=== PATIENT | female | born 1950 | race Caucasian/White ===

== ENCOUNTER 2017-08-12 08:30 | Outpatient (RCR) | payer MEDICARE, OTHER, SELFPAY ==
[2017-07-15 01:24] VITALS: BP 174/71; PULSE 70; RESP 18; TEMP 36.2
[2017-07-22 08:39] VITALS: BP 127/59; PULSE 65; RESP 18; TEMP 36.6
--- NOTE | 2017-07-22 10:12 | PCM.WC.PN ---
Type of Wound Date of Service: 07/22/17 Chief Complaint: Nonhealing infected diabetic ulcer abscess right lower abdominal wall. History of Wound: Surgery 04/29/17 - Surgical preparation right lower abdominal wall with excision skin, subcutaneous tissue, and fascia with fascial closure for necrotizing soft tissue infected diabetic ulcer abscess (429 cm2). Wound care - VAC. Operative culture - Pseudomonas aeroginosa and Anaerobic cocci. She was placed on Cipro and Cefepime IV and has finished them. For the anaerobes, she was placed on Flagyl and has finished it. Prealbumin from 05/13/17 was 21.8. She takes nutritional supplementation with protein to help the healing process. CT Abdomen/Pelvis from 04/29/17 showed no intra-abdominal infection. Today she denies fever. Her appetite is good. Progress of Wound: Improved. - Physical Exam Vital Signs Temp Pulse Resp BP 97.8 F 65 18 127/59 H 07/22/17 08:39 07/22/17 08:39 07/22/17 08:39 07/22/17 08:39 Wound Measurements and Assessment - Nurse 1 - General Ulcer Measurement Start: 07/22/17 08:38 Freq: Status: Active Protocol: Activity Type Activity Date Activity User E-Sign Co-Sign Detail Recorded Client Recorded Date Recorded By Document 07/22/17 08:39 [id number] 07/22/17 08:40 RAKEL 07/22/17 08:39 Wound Center Nurse 1 [Ulcer Assessment Protocol: WC.WD.LOC] # ABD -Combined with other wound No -Current Size (cm) - Length 5.5 -Current Size (cm) - Width 22.9 -Current Size (cm) - Depth 5.0 -Total Square Cm 125.95 -Photo Taken No -Epithelialization Medium 34-66% -Tunneling No -Undermining/Tunneling No -Circular Undermining No -Exudate Amt Large (67-100%) -Exudate Type Serosanguineous -Wound Margin Flat & Intact -Granulation Amt Large (67-100%) -Granulation Quality Pale Red -Slough/Fibrin Yes -Necrosis Amt Small (1-33%) -Necrotic Tissue Type Adherent Slough -Structure Exposed N/A -Texture (Roro-wound Skin Appearance) Assessed -Moisture (Roro-wound Skin Appearance Assessed ) Dry/Scaly -Color (Roro-wound Skin Appearance) Assessed -Temperature (Roro-wound Skin No Abnormality Appearance) (Pt Warm) -Tenderness on Palpation (Roro-wound No Skin Appearance) -Ulcer Cleansing Wound Cleanser -Foul Odor after Cleansing No -Anesthetic Used 4% Lidocaine Solution [Edema Assessment] -Lower Limb Edema Present NA OMAIRA - Nurse 2 - General Ulcer CM Notes Start: 07/22/17 08:38 Freq: Status: Active Protocol: Activity Type Activity Date Activity User E-Sign Co-Sign Detail Recorded Client Recorded Date Recorded By Document 07/22/17 08:52 RAKEL [id number] 07/22/17 08:55 RAKEL 07/22/17 08:52 Wound Center Nurse 2 [Procedure/Treatment] # ABD -Time 08:53 -Correct Patient Yes -Correct Side, Site, Position Yes -Correct Procedure Yes -Procedure Performed Yes -Type of Procedure Debridement -Clinical Debridement Subcutaneous -Post Debridement Size (cm) - Length 5.5 -Post Debridement Size (cm) - Width 23.0 -Post Debridement Size (cm) - Depth 5.0 -Total Square Cm 126.50 -Wound/Ulcer Outcome Not Healed -Ulcer Cleansing Rinsed/ Irrigated with Saline -Foul Odor after Cleansing No -Bioengineered Tissue No -Cetacaine [place] No -Bleeding Controlled with Pressure -Treatment Response Procedure Tolerated Well [See Physician Procedure note for Specifics] Pain Scale: 0-10 Numeric [Pain] -Is Patient Pain Free? Yes Debridement Note Post-Debridement Measurements/Treatment - Nurse 2 - General Ulcer CM Notes Start: 07/22/17 08:38 Freq: Status: Active Protocol: Activity Type Activity Date Activity User E-Sign Co-Sign Detail Recorded Client Recorded Date Recorded By Document 07/22/17 08:52 [email or web address] [id number] 07/22/17 08:55 07/22/17 08:52 Wound Center Nurse 2 # ABD -Time 08:53 -Correct Patient Yes -Correct Side, Site, Position Yes -Correct Procedure Yes -Procedure Performed Yes -Type of Procedure Debridement -Clinical Debridement Subcutaneous -Post Debridement Size (cm) - Length 5.5 -Post Debridement Size (cm) - Width 23.0 -Post Debridement Size (cm) - Depth 5.0 -Total Square Cm 126.50 -Wound/Ulcer Outcome Not Healed -Ulcer Cleansing Rinsed/ Irrigated with Saline -Foul Odor after Cleansing No -Bioengineered Tissue No -Cetacaine [place] No -Bleeding Controlled with Pressure -Treatment Response Procedure Tolerated Well Pain Scale: 0-10 Numeric Is Patient Pain Free? Yes Wound debrided: #1 Right lower abdominal wall. Laterality: Right Wound Grade/Stage: 4. Type of Debridement: Excisional debridement Anesthesia Used: 4% Lidocaine Solution Depth: Down to and including healthy tissue, in the subcutaneous layer Percentage of wound debrided: 100 Instrument Used: 7mm curette Tissue Removed: subcutaneous tissue. Severity: Fat Layer Exposed Amount of bleeding with debridement: Mild Bleeding Controlled with: Pressure Patient tolerated procedure well Assessment/Plan Assessment: 1. Nonhealing infected diabetic ulcer necrotizing abscess right lower abdominal wall. 2. Skin necrosis. 3. Diabetes mellitus. 4. s/p surgical preparation right lower abdominal wall with excision skin, subcutaneous tissue, and fascia with fascial closure for necrotizing soft tissue infected diabetic ulcer abscess (429 cm2). Plan: Continue the VAC. She was on Cefepime IV as well as Cipro for the Pseudomonas aeroginosa and has finished them. She was placed on Flagyl for the anaerobes and has finished it. Prealbumin was 21.8 on 05/13/17. She takes nutritional supplementation with protein to help the healing process. She uses the abdominal wall binder, and it has been helpful. Discussed with the patient further surgery with operative debridement and secondary wound closure or skin grafting. She will like to proceed with the surgery. Will schedule for next month. Followup 3 weeks.
--- NOTE | 2017-07-31 08:45 | WC ---
Calll from [facility] regarding VAC changes Mrs. Riley's schedule was , but somehow got changed to . Dressing change was missed on Saturday. Patient requesting to have dressing changed on Wednesday 08/02 instead of . Spoke with Lead Architect regarding same. 'Leticia' from home health given the o.k. to leave the dressing on for an extra day and change it Saturday instead of . Drainage reported as minimal.
--- NOTE | 2017-07-31 13:38 | WC ---
Patient reported by Kathleen @ [facility] that family is applying NYSTATIN POWDER to excoriations w/o doctor's order. Area reportedly is clearing up. Home Health wishing to obtain order to use. Animal Ride Manager contacted regarding same.
[2017-08-12 08:20] VITALS: BP 157/71; PULSE 66; RESP 18; TEMP 35.7
--- NOTE | 2017-08-12 17:58 | PCM.WC.PN ---
Type of Wound Date of Service: 08/12/17 Chief Complaint: Nonhealing infected diabetic ulcer abscess right lower abdominal wall. History of Wound: Surgery 04/29/17 - Surgical preparation right lower abdominal wall with excision skin, subcutaneous tissue, and fascia with fascial closure for necrotizing soft tissue infected diabetic ulcer abscess (429 cm2). Wound care - VAC. Operative culture - Pseudomonas aeroginosa and Anaerobic cocci. She was placed on Cipro and Cefepime IV and has finished them. For the anaerobes, she was placed on Flagyl and has finished it. Prealbumin from 05/13/17 was 21.8. She takes nutritional supplementation with protein to help the healing process. CT Abdomen/Pelvis from 04/29/17 showed no intra-abdominal infection. Today she denies fever. Her appetite is good. Progress of Wound: Improved. - Physical Exam Vital Signs Temp Pulse Resp BP 96.2 F L 66 18 157/71 H 08/12/17 08:20 08/12/17 08:20 08/12/17 08:20 08/12/17 08:20 Debridement Note Post-Debridement Measurements/Treatment WC - Nurse 2 - General Ulcer CM Notes Start: 07/22/17 08:38 Freq: Status: Active Protocol: Activity Type Activity Date Activity User E-Sign Co-Sign Detail Recorded Client Recorded Date Recorded By Document 07/22/17 08:52 [id number] 07/22/17 08:55 Document 08/12/17 09:08 [email or web address] [id number] 08/12/17 09:09 07/22/17 08/12/17 08:52 09:08 Wound Center Nurse 2 # ABD -Time 08:53 09:08 -Correct Patient Yes Yes -Correct Side, Site, Position Yes Yes -Correct Procedure Yes Yes -Procedure Performed Yes Yes -Type of Procedure Debridement Debridement -Clinical Debridement Subcutaneous Subcutaneous -Post Debridement Size (cm) - Length 5.5 4.9 -Post Debridement Size (cm) - Width 23.0 18.8 -Post Debridement Size (cm) - Depth 5.0 2.8 -Total Square Cm 126.50 92.12 -Wound/Ulcer Outcome Not Healed Not Healed -Ulcer Cleansing Rinsed/ Rinsed/ Irrigated with Irrigated with Saline Saline -Foul Odor after Cleansing No No -Bioengineered Tissue No No -Cetacaine [place] No No -Bleeding Controlled with Pressure Pressure -Treatment Response Procedure Procedure Tolerated Well Tolerated Well Pain Scale: 0-10 Numeric Is Patient Pain Free? Yes Yes Wound debrided: #1 Right lower abdominal wall. Laterality: Right Wound Grade/Stage: 4. Type of Debridement: Excisional debridement Anesthesia Used: 4% Lidocaine Solution Depth: Down to and including healthy tissue, in the subcutaneous layer Percentage of wound debrided: 100 Instrument Used: 7mm curette Tissue Removed: subcutaneous tissue. Severity: Fat Layer Exposed Amount of bleeding with debridement: Mild Bleeding Controlled with: Pressure Patient tolerated procedure well Assessment/Plan Assessment: 1. Nonhealing infected diabetic ulcer necrotizing abscess right lower abdominal wall. 2. Skin necrosis. 3. Diabetes mellitus. 4. s/p surgical preparation right lower abdominal wall with excision skin, subcutaneous tissue, and fascia with fascial closure for necrotizing soft tissue infected diabetic ulcer abscess (429 cm2). Plan: Continue the VAC. She was on Cefepime IV as well as Cipro for the Pseudomonas aeroginosa and has finished them. She was placed on Flagyl for the anaerobes and has finished it. Prealbumin was 21.8 on 05/13/17. She takes nutritional supplementation with protein to help the healing process. She uses the abdominal wall binder, and it has been helpful. Discussed with the patient further surgery with operative debridement and secondary wound closure or skin grafting. She will like to proceed with the surgery. Will schedule for next month. Followup 3 weeks.
--- NOTE | 2017-08-15 21:41 | PN.PCM_ITS ---
Type of Wound Date of Service: 08/12/17 Chief Complaint: Nonhealing infected diabetic ulcer abscess right lower abdominal wall. History of Wound: Surgery 04/29/17 - Surgical preparation right lower abdominal wall with excision skin, subcutaneous tissue, and fascia with fascial closure for necrotizing soft tissue infected diabetic ulcer abscess (429 cm2). Wound care - VAC. Operative culture - Pseudomonas aeroginosa and Anaerobic cocci. She was placed on Cipro and Cefepime IV and has finished them. For the anaerobes, she was placed on Flagyl and has finished it. Prealbumin from was 21.8. She takes nutritional supplementation with protein to help the healing process. CT Abdomen/Pelvis from 04/29/17 showed no intra-abdominal infection. Today she denies fever. Her appetite is good. Progress of Wound: Improved. - Physical Exam Vital Signs Temp Pulse Resp BP 96.2 F L 66 18 157/71 H 08/12/17 08:20 08/12/17 08:20 08/12/17 08:20 08/12/17 08:20 Debridement Note Post-Debridement Measurements/Treatment WC - Nurse 2 - General Ulcer CM Notes Start: 07/22/17 08:38 Freq: Status: Active Protocol: Activity Type Activity Date Activity User E-Sign Co-Sign Detail Recorded Client Recorded Date Recorded By Document 07/22/17 08:52 [id number] 07/22/17 08:55 Document 08/12/17 09:08 [email or web address] [id number] 08/12/17 09:09 07/22/17 08/12/17 08:52 09:08 Wound Center Nurse 2 # ABD -Time 08:53 09:08 -Correct Patient Yes Yes -Correct Side, Site, Position Yes Yes -Correct Procedure Yes Yes -Procedure Performed Yes Yes -Type of Procedure Debridement Debridement -Clinical Debridement Subcutaneous Subcutaneous -Post Debridement Size (cm) - Length 5.5 4.9 -Post Debridement Size (cm) - Width 23.0 18.8 -Post Debridement Size (cm) - Depth 5.0 2.8 -Total Square Cm 126.50 92.12 -Wound/Ulcer Outcome Not Healed Not Healed -Ulcer Cleansing Rinsed/ Rinsed/ Irrigated with Irrigated with Saline Saline -Foul Odor after Cleansing No No -Bioengineered Tissue No No -Cetacaine [place] No No -Bleeding Controlled with Pressure Pressure -Treatment Response Procedure Procedure Tolerated Well Tolerated Well Pain Scale: 0-10 Numeric Is Patient Pain Free? Yes Yes Wound debrided: #1 Right lower abdominal wall. Laterality: Right Wound Grade/Stage: 4. Type of Debridement: Excisional debridement Anesthesia Used: 4% Lidocaine Solution Depth: Down to and including healthy tissue, in the subcutaneous layer Percentage of wound debrided: 100 Instrument Used: 7mm curette Tissue Removed: subcutaneous tissue. Severity: Fat Layer Exposed Amount of bleeding with debridement: Mild Bleeding Controlled with: Pressure Patient tolerated procedure well Assessment/Plan Assessment: 1. Nonhealing infected diabetic ulcer necrotizing abscess right lower abdominal wall. 2. Skin necrosis. 3. Diabetes mellitus. 4. s/p surgical preparation right lower abdominal wall with excision skin, subcutaneous tissue, and fascia with fascial closure for necrotizing soft tissue infected diabetic ulcer abscess (429 cm2). Plan: Continue the VAC. She was on Cefepime IV as well as Cipro for the Pseudomonas aeroginosa and has finished them. She was placed on Flagyl for the anaerobes and has finished it. Prealbumin was 21.8 on 05/13/17. She takes nutritional supplementation with protein to help the healing process. She uses the abdominal wall binder, and it has been helpful. Discussed with the patient further surgery with operative debridement and secondary wound closure or skin grafting. She will like to proceed with the surgery. Will schedule for next month. Followup 3 weeks.
== END 2017-08-14 23:59 ==
LOC: WC 08:30
PROVIDERS: Family Provider Family Medicine; PCP Family Medicine; Visit Provider Surgery
DX: E11.622 Type 2 diabetes mellitus with other skin ulcer (principal); L02.211 Cutaneous abscess of abdominal wall; L98.492 Non-pressure chronic ulcer of skin of other sites with fat layer exposed
CPT/HCPCS: 11042; 11045; 97606

== ENCOUNTER 2017-08-22 06:20 | Day surgery (SDC) | payer MEDICARE, OTHER, SELFPAY ==
[2017-08-16 10:05] LABS: Hematocrit 34.8 % (37-47); Hemoglobin 11.3 g/dl (12.0-15.0); Mean Corp Hgb Conc 32.5 g/gl (32-36); Mean Corpuscular Hgb 29.4 pg (27.0-32.0); Mean Corpuscular Volume 90.6 fL (81-99); Mean Platelet Vol. 11.5 fl (6.2-12.0); Platelet Count 246 K/mm3 (150-450); RBC Distribution Width CV 15.7 % (11.6-14.6); RBC Distribution Width SD 51.2 fl (35.1-43.9); Red Blood Count 3.84 M/mm3 (4.2-5.4); White Blood Count 6.6 K/mm3 (4.4-11.0)
[2017-08-16 10:06] LABS: Scan Indicated on CBC? Y/N NO
[2017-08-16 10:34] LABS: Hemoglobin A1c 6.2 % (4.2-6.3)
[2017-08-16 10:56] LABS: Anion Gap 11 (5-15); BUN 42 mg/dL (7-18); BUN/Creat Ratio 41.6 RATIO (10-20); Chloride 101 mmol/L (98-107); Creatinine, Serum 1.01 mg/dL (0.55-1.02); EST Glomerular Filtration Rate 58 mL/min (>60); Est Glom Filt Rate - Afr Amer 71 mL/min (>60); Glucose 167 mg/dL (70-110); Potassium 4.2 mmol/L (3.5-5.1); Prealbumin 23.2 mg/dL (20.0-40.0); Sodium Level 137 mmol/L (136-145)
--- NOTE | 2017-08-21 16:38 | HP.PCM_ITS ---
History and Physical Date of Admission: 08/22/17 History of Present Illness Chief Complaint: Nonhealing infected diabetic ulcer right lower abdominal wall. History of Wound: 67-year-old female presented with a very painful nonhealing ulcer right lower abdominal wall that has been present since February. She has had two courses of Keflex antibiotics. Patient relates no fever, chills, myalgias or arthralgias. Patient has type II diabetes on multiple hypoglycemics as well as once a day insulin. A wound culture was done last week which showed Pseudomonas aeroginosa and Enterococcus faecalis. She complained of a lot of pain as well as burning from pins and needles stabbing her in the wound. She was taken to the OR on 04/29/17 where she underwent surgical preparation right lower abdominal wall with excision skin, subcutaneous tissue, and fascia with fascial closure for necrotizing soft tissue infected diabetic ulcer abscess (429 cm2). Postop she was treated with the VAC and antibiotics with Cefepime and Cipro and Flagyl. Operative cultures showed Pseudomonas aeroginosa and Anaerobic cocci. She presents today for further operative debridement and secondary wound closure. Her preop Hgb A1c was 6.2. Past Medical History Past Medical History: Diabetes mellitus. Hypertension. Obesity. STEPHANE. Surgical History: cholecystectomy, hysterectomy - [place], tonsillectomy, - - section, vulvar abscess. Surgical preparation right lower abdominal wall with excision skin, subcutaneous tissue, and fascia with fascial closure for necrotizing soft tissue infected diabetic ulcer abscess (429 cm2) - 04/29/17. Allergies/Adverse Reactions: apple. cinnamon. metoprolol. strawberry. metformin. Home Medications: Amiloride. Aspirin. B Complex with Vitamin C. Calcium Carbonate. Candesartan-HCTZ. Lasix. Micronase. Insulin. MVI. Omeprazole. Actos. Zoloft. Januvia. SOCIAL HISTORY: Lives: With Family Smoking Status: Never smoker Tobacco Use: Non-smoker Alcohol: None Drugs: None Family History Maternal History Items: - - no DM Sibling History Items: Diabetes Review of Systems Constitutional: Denies: Chills, Fever. Eyes: Denies: Double vision. HEENT: Denies: Ear Pain, Head Aches, Nasal bleeding, Sore Throat. Cardiovascular: Denies: Chest Pain, Claudication, Edema, Light Headedness. Respiratory: Denies : Cough, Shortness of breath upon exertion. Gastrointestinal: Denies: Abdominal Pain, Constipation, Diarrhea. Genitourinary: Denies: Dysuria, Hematuria. Musculoskeletal: Denies: Back Pain, Foot Pain, Joint Pain, Joint stiffness, Joint swelling, Leg Pain. Skin: Reports: Wounds. Denies: Rash. Neurological: Denies: Confusion, Focal weakness, Headaches, Incoordination. Psychiatric: Denies: Anxiety, Depression. Endocrine: Denies: Heat/ Cold Intolerance, Polydipsia, Polyuria. Hematologic/ Lymphatic: Denies: Anemia, Easy Bruising, Hx of blood clot - Physical Exam General: Alert, Oriented x3 HEENT: PERRLA, EOMI, Oral: Throat is clear. Neck: Supple, nontender. No cervical adenopathy. Lungs: Clear to auscultation, Cardiovascular: Regular rate, Regular Rhythm Abdomen: Obese. In the right lower abdominal wall is a nonhealing ulcer measuring 5 x 19 x 3 cm. Good granulation tissue seen. Some tenderness to palpation. No further evidence of infection. Has lower midline scar. Extremities: No cyanosis, No edema, No Calf Tenderness Assessment/Plan Assessment: 1. Nonhealing infected diabetic ulcer right lower abdominal wall. 2. Diabetes mellitus. 3. s/p surgical preparation right lower abdominal wall with excision skin, subcutaneous tissue, and fascia with fascial closure for necrotizing soft tissue infected diabetic ulcer abscess (429 cm2). Plan: Recommend further operative debridement and secondary wound closure and possible skin grafting. Will send tissue for Pathology for analysis to rule out carcinoma. Tissue will also be sent to Microbiology for culture. A positive culture may necessitate antibiotic modification. Her Hgb A1c is 6.2 so we can proceed with the surgery. Perioperatively will treat her with Cefepime and Levaquin because of her history of Pseudomonas. Surgery will be done under general anesthesia with a surgical observation overnight stay in the hospital. She will have a drain postop and need an abdominal binder. Drain will be removed in 10-14 days. Her preop Prealbumin was 23.2 as I anticipate increased metabolic demands. Encourage nutritional supplementation with protein to help the healing process. Patient was informed of the risks and complications of the procedure including alternatives to surgery. These were discussed with her personally. She voiced understanding and wishes to proceed.
[2017-08-22] VITALS (9 sets, daily range): BP systolic 112–177; BP diastolic 45–66; PULSE 55–70; RESP 16; TEMP 36.3–36.8; O2SAT 91–100; BMI 49.1
[2017-08-22 07:01] LABS: Bedside Glucose 100 mg/dL (70-110)
--- NOTE | 2017-08-22 08:00 | DEB_PTH ---
PATIENT: UTE MARTINEZ LOC: [facility] [place][id number] AGE/SX: 67/F ROOM: RE08/22/[address]: Dr. El Cao MD : [id number] BED: DIS: 08/23/2017 SPEC #: [id number] RECD: 08/22/17 09:21 STATUS: TYESHA CHAPARRO #: [id number] JERICHO: 08/22/17 08:[address]: El Cao DEPT: SURGICAL PATHOLOGY RECD BY: Sean Ayala ENTERED: 08/22/17 11:51 SP TYPE: JASMINE FLOWERS DR: Dr. Bc Gray MD Tissues: Soft tissues, NOS Procedures: Special Stain Group I Surgery Specimen Level III AFB Stain (control) GMS Stain (control) HEADER OPERATION: Debridement wound, lower abdominal wall, secondary wound PRE-OP DIAGNOSIS: Nonhealing infected diabetic ulcer, right abdominal wall TISSUE SUBMITTED: Nonhealing infected diabetic ulcer, right abdominal wall MICROSCOPIC DIAGNOSIS Debrided tissue, nonhealing infected diabetic ulcer, right abdominal wall: Skin with underlying tissue with ulceration, associated acute and chronic inflammation and granulation tissue reaction. Special stains for acid fast bacilli and fungi are negative for organisms; matched controls are appropriate. MARIO:katie 08/23/17 MICROSCOPIC DESCRIPTION Slides are reviewed. GROSS DESCRIPTION Received in fixative is one container labeled with the patient's name and designated debrided tissue, nonhealing infected diabetic ulcer, right abdominal wall. The specimen consists of a piece of skin with underlying tissue measuring 21 x 9 x 6 cm. The skin surface shows central area of ulceration. Software Support Representative sections are submitted in three cassettes. Sections do not reveal any mass lesion. / MARIO:katie 08/22/17 TC:2 CPT: 00494, 65545 x2
[2017-08-22] MEDS: Cefepime HCl 2 GM in 0.9% NS 100 ML Minibag Q8 IV (08:04)
--- NOTE | 2017-08-22 09:49 | OP.PN_ITS ---
Immediate Post-Op Note Date of Procedure: 08/22/17 Primary Surgeon/Physician: El Cao bilingual loan processor: Nicole Patricio. Pre-Operative Diagnosis: 1. Nonhealing infected diabetic ulcer right lower abdominal wall. 2. Diabetes mellitus. 3. s/p surgical preparation right lower abdominal wall with excision skin, subcutaneous tissue, and fascia with fascial closure for necrotizing soft tissue infected diabetic ulcer abscess ( 429 cm2). Post-Operative Diagnosis: Same. Surgery/Procedure Performed:: Surgical preparation right lower abdominal wall with excision nonhealing infected diabetic ulcer and 35 cm complex secondary wound closure. Description of Surgical Findings:: 67-year-old female presented with a very painful nonhealing ulcer right lower abdominal wall that has been present since February. She has had two courses of Keflex antibiotics. Patient relates no fever, chills, myalgias or arthralgias. Patient has type II diabetes on multiple hypoglycemics as well as once a day insulin. A wound culture was done last week which showed Pseudomonas aeroginosa and Enterococcus faecalis. She complained of a lot of pain as well as burning from pins and needles stabbing her in the wound. She was taken to the OR on 04/29/17 where she underwent surgical preparation right lower abdominal wall with excision skin, subcutaneous tissue, and fascia with fascial closure for necrotizing soft tissue infected diabetic ulcer abscess (429 cm2). Postop she was treated with the VAC and antibiotics with Cefepime and Cipro and Flagyl. Operative cultures showed Pseudomonas aeroginosa and Anaerobic cocci. She presents today for further operative debridement and secondary wound closure. Her preop Hgb A1c was 6.2. Today the patient underwent surgical preparation right lower abdominal wall with excision nonhealing infected diabetic ulcer and 35 cm complex secondary wound closure. I used Shania absorbable hemostat. Reference Number - [id number]. Lot Number - [id number]. Expiration - May 11, 2022. Estimated Blood Loss: 100 ml. Specimen's removed: Nonhealing infected diabetic ulcer right lower abdominal wall to Pathology and Microbiology. Drains: Lj. Type of Anesthesia:: General - Admit VTE Documentation VTE Present on Admission: No VTE Mechan Device Prophylaxis: SCD's VTE Pharm Prophylaxis ordered?: No
[2017-08-22 10:01] LABS: Bedside Glucose 109 mg/dL (70-110)
[2017-08-22] MEDS: Vitamin B Comp W-C Capsule 1 CAP PO (11:54)
[2017-08-22] MEDS: Furosemide 20 MG Tablet PO (11:54)
[2017-08-22] MEDS: Sertraline 50 MG Tablet PO (11:56)
[2017-08-22] MEDS: Pioglitazone Hydrochloride 30 MG Tablet PO (11:59)
--- NOTE | 2017-08-22 16:53 | PCM.OPRPT ---
Report of Operation Date of Procedure: 08/22/17 Pre-Operative Diagnosis: 1. Nonhealing infected diabetic ulcer right lower abdominal wall. 2. Diabetes mellitus. 3. s/p surgical preparation right lower abdominal wall with excision skin, subcutaneous tissue, and fascia with fascial closure for necrotizing soft tissue infected diabetic ulcer abscess (429 cm2). Post-Operative Diagnosis: Same. Surgery/Procedure Performed:: Surgical preparation right lower abdominal wall (175 cm2) with excision nonhealing infected diabetic ulcer and 35 cm complex secondary wound closure. Description of Surgical Findings:: 67-year-old female presented with a very painful nonhealing ulcer right lower abdominal wall that has been present since February. She has had two courses of Keflex antibiotics. Patient relates no fever, chills, myalgias or arthralgias. Patient has type II diabetes on multiple hypoglycemics as well as once a day insulin. A wound culture was done last week which showed Pseudomonas aeroginosa and Enterococcus faecalis. She complained of a lot of pain as well as burning from pins and needles stabbing her in the wound. She was taken to the OR on 04/29/17 where she underwent surgical preparation right lower abdominal wall with excision skin, subcutaneous tissue, and fascia with fascial closure for necrotizing soft tissue infected diabetic ulcer abscess (429 cm2). Postop she was treated with the VAC and antibiotics with Cefepime and Cipro and Flagyl. Operative cultures showed Pseudomonas aeroginosa and Anaerobic cocci. She presents today for further operative debridement and secondary wound closure. Her preop Hgb A1c was 6.2. Patient was informed of the risks and complications of the procedure including alternatives to surgery. These were discussed with her personally. She voiced understanding and wishes to proceed. I used Shania absorbable hemostat. Reference Number - [id number]. Lot Number - [id number]. Expiration - May 11, 2022. teacher instrumental: Nicole Patricio. Type of Anesthesia:: General Specimen's removed: Nonhealing infected diabetic ulcer right lower abdominal wall to Pathology and Microbiology. Drains: Lj. Estimated Blood Loss (mL): 100 ml. Description of Procedure: Patient was taken to OR in supine position and was placed under general anesthesia. Her abdominal wall was prepped and draped in the usual fashion. SCD's were placed for DVT prophylaxis. Perioperative antibiotics were given intravenously. Using xylocaine with epinephrine, I infiltrated the nonhealing diabetic ulcer. After waiting 5 minutes for the anesthetic to take effect, I excised the nonhealing diabetic ulcer down to the abdominal wall fascia. There was some adherent scar tissue to the fascia that was excised. The underlying fascia was intact and looked healthy without evidence of fasciitis. This deeper tissue was sent to Microbiology for culture. The rest of the tissue was sent to Pathology for analysis to rule out carcinoma. The wound was irrigated with saline. Hemostasis was obtained with electrocautery. I then sprayed Shania absorbable hemostat into the wound to help minimize seroma formation postoperatively. A size 15 Lj drain was placed through a separate stab incision inferiorly and medially in the pubic area and secured to the skin with 3-0 Nylon suture. The wound was then closed in a multiple layer complex fashion with 2-0 Vicryl figure of eight interrupted sutures for the underlying Amanda's fascia. The deep dermis and subcutaneous tissue was approximated with 2-0 Vicryl interrupted sutures. The skin was approximated with 3-0 Vlock barbed unidirectional running subcuticular suture followed by Histoacryl skin tissue adhesive. Kerlix gauze was applied to the incision followed by ABD pads and compression tape dressing. An abdominal wall binder was applied. Patient tolerated the procedure well and was sent to PACU in satisfactory condition. She will be sent upstairs for surgical observation overnight stay. She will go home on antibiotics and pain medication. The drain will be removed in 10-14 days. She will wear the abdominal binder for several weeks. Grafts/Implants Used: None. - Complications None. - Admit VTE Documentation VTE Present on Admission: No VTE Mechan Device Prophylaxis: SCD's VTE Pharm Prophylaxis ordered?: No Code Visit Surgery Charges CPT - 99422 ICD-10 - L98.492, E11.622 85417 L98.492, E11.622 80976 L98.492, E11.622
[2017-08-22] MEDS: Glucerna Shake 120 ML LIQUID PO ×2 (16:58→17:18)
[2017-08-22] MEDS: Lactated Ringers 1,000 ML 60 ML IV (16:59)
[2017-08-22 17:11] LABS: Bedside Glucose 119 mg/dL (70-110)
[2017-08-22] MEDS: HYDROmorphone 1 MG/ML Syringe IV (17:19)
[2017-08-22] MEDS: 0.9% NaCl Peripheral Flush Adult/Peds IV (20:13)
[2017-08-22] MEDS: Ondansetron 4 MG/2 ML Vial IV (20:13)
[2017-08-22] MEDS: Docusate Sodium 100 MG Capsule PO (22:38)
[2017-08-22 22:56] LABS: Bedside Glucose 150 mg/dL (70-110)
[2017-08-23] MEDS: oxyCODONE 5 MG Tablet 10 MG PO ×4 (02:21→12:47)
[2017-08-23 02:31] VITALS: BP 129/52; PULSE 68; RESP 16; TEMP 37.2; O2SAT 94
[2017-08-23 06:15] LABS: Hematocrit 30.1 % (37-47); Hemoglobin 9.5 g/dl (12.0-15.0); Mean Corp Hgb Conc 31.6 g/gl (32-36); Mean Corpuscular Hgb 29.1 pg (27.0-32.0); Mean Platelet Vol. 11.2 fl (6.2-12.0); Platelet Count 155 K/mm3 (150-450); RBC Distribution Width CV 15.9 % (11.6-14.6); RBC Distribution Width SD 51.7 fl (35.1-43.9); Red Blood Count 3.27 M/mm3 (4.2-5.4); Scan Indicated on CBC? Y/N NO; White Blood Count 4.6 K/mm3 (4.4-11.0)
[2017-08-23 06:48] LABS: Anion Gap 10 (5-15); BUN 32 mg/dL (7-18); BUN/Creat Ratio 32.9 RATIO (10-20); Calcium,Total 8.2 mg/dL (8.5-10.1); Chloride 102 mmol/L (98-107); Creatinine, Serum 0.97 mg/dL (0.55-1.02); EST Glomerular Filtration Rate 61 mL/min (>60); Est Glom Filt Rate - Afr Amer 74 mL/min (>60); Estimated Creatinine Clearance 49.93 ml/min; Glucose 143 mg/dL (74-106); Potassium 4.1 mmol/L (3.5-5.1); Prealbumin 16.8 mg/dL (20.0-40.0); Sodium Level 136 mmol/L (136-145)
[2017-08-23 08:31] VITALS: BP 153/72; PULSE 75; RESP 16; TEMP 36.7; O2SAT 94
[2017-08-23] MEDS: Calcium Carb/Vitamin D 1 TABLET Tablet PO (08:33)
[2017-08-23] MEDS: LINAGLIPTIN 5 MG TABLET PO (08:33)
[2017-08-23] MEDS: Pioglitazone Hydrochloride 30 MG Tablet PO (08:33)
[2017-08-23] MEDS: Pantoprazole Sodium 40 MG Tablet PO (08:33)
[2017-08-23] MEDS: Multivitamins,Therapeutic Tablet 1 TABLET PO (08:33)
[2017-08-23] MEDS: hydroCHLOROthiazide 25 MG Tablet PO (08:33)
[2017-08-23] MEDS: Losartan Potassium 100 MG Tablet PO (08:33)
[2017-08-23] MEDS: Vitamin B Comp W-C Capsule 1 CAP PO (08:34)
[2017-08-23] MEDS: Docusate Sodium 100 MG Capsule PO (08:34)
[2017-08-23] MEDS: Sertraline 50 MG Tablet PO (08:35)
[2017-08-23] MEDS: Glucerna Shake 120 ML LIQUID PO ×2 (09:44→12:47)
[2017-08-23] MEDS: Lactated Ringers 1,000 ML 60 ML IV (09:46)
[2017-08-23 10:54] VITALS: BP 145/61; PULSE 72; RESP 16; TEMP 37.3; O2SAT 94
--- NOTE | 2017-08-23 14:15 | PCM.PN.SRG ---
Subjective: Postop #1 Patient is resting comfortably. - Physical Exam General: Alert, Oriented x3 HEENT: PERRLA, EOMI Neck: Supple Lungs: Clear to auscultation Cardiovascular: Regular rate, Regular Rhythm Abdomen: Soft, Non-Distended Skin: Incision - right lower abdominal wall incision dry and intact. No clinical evidence of hematoma. Neurological: Cranial nerves II-XII grossly intact Psych/Mental Status: Normal Affect, Appropriate Vital Signs Temp Pulse Resp BP Pulse Ox 99.2 F H 72 16 145/61 H 94 08/23/17 10:54 08/23/17 10:54 08/23/17 10:54 08/23/17 10:54 08/23/17 10:54 Oxygen Delivery Method Room Air Weight: 286 lb 6.087 oz Body Mass Index (BMI) 49.1 Finger Stick Blood Glucose 109 Intake and Output for Last 24 Hours 08/21/17 08/22/17 08/23/17 23:59 23:59 23:59 Intake Total 3099 / 3099 1547 / 1547 Output Total 1000 / 1000 730 / 730 Balance 2099 / 2099 817 / 817 Drainage 100 ml yesterday, 80 ml today. Microbiology Past 72 Hours 08/22/17 08:45 Gram Stain - Final Tissue - Abdominal Wound Culture - Preliminary No growth-Final to follow Laboratory Tests Past 24 Hrs 08/23/17 08/23/17 05:46 05:46 WBC 4.6 RBC 3.27 L Hgb 9.5 L Hct 30.1 L MCV 92.0 MCH 29.1 MCHC 31.6 L RDW 15.9 H RDW Differential 51.7 H Plt Count 155 MPV 11.2 Sodium 136 Potassium 4.1 Chloride 102 Carbon Dioxide 24.0 Anion Gap 10 BUN 32 H Creatinine 0.97 Estim Creat Clear Calc 49.93 Est GFR (MDRD) Af Amer 74 Est GFR (MDRD) Non-Af 61 BUN/Creatinine Ratio 32.9 H Glucose 143 H Calcium 8.2 L Prealbumin 16.8 L POC Glucose 08/22/17 08/22/17 22:37 17:02 POC Glucose 150 H 119 H Assessment/Plan 1. Nonhealing infected diabetic ulcer right lower abdominal wall. 2. Diabetes mellitus. 3. s/p surgical preparation right lower abdominal wall with excision nonhealing infected diabetic ulcer and 28 cm complex secondary wound closure. Patient is resting comfortably. Incision is dry and intact. No clinical evidence of hematoma. Continue abdominal binder. Will remove the drain in 10-14 days. Maintain on Cipro until the drain is removed. Prealbumin was 16.8. Encourage nutritional supplementation with protein to help the healing process. Discharge home today. Followup Wound Center Saturday09/02/17 at 1000am. Wrote script for Cipro for 2 weeks until the drain is removed. Wrote script for Phenergan for nausea (30 tabs). She has some Percocet at home from her last surgery that she will use as needed for pain.
--- NOTE | 2017-08-23 14:27 | PCM.DC ---
You will use the following diet at home:: Calorie/Carbohydrate Controlled (specify 1200, 1400, etc), Other - encourage nutritional supplementation wtih protein to help the healing process. Discharge Activity: May not drive while taking narcotic pain medications., May Shower - after the drain is removed. May shower in (days): 14 - may shower after the drain is removed. May resume sexual activity in: 4-6 weeks Weight Bearing Status: Weight bearing as tolerated Lifting Restrictions: 20 lbs. Call your doctor if your incision/area has: Continuous Slow Oozing, Sudden Increased Bleeding, Increased Pain/ Swelling, Increased Redness, Foul Smelling Discharge, Swelling at the incision site Call your doctor if you observe: Fever of 101 or Higher, Coldness, Increased Pain, Shortness of breath, Chest pain, Calf discomfort, Uncontrolled pain Suture Line Care: - - dry dressing daily. Change Dressing in (Days):: 1 - dry dressing daily. Cleanse incision/area with: - - may get incision wet in the shower after the drain is removed. Drain: Suction - mickey drain to bulb suction. empty and record output daily. Additional Dressing/Incision Instructions:: Wear abdominal binder. Additional Instructions: Patient has Percocet at home and will use them as needed for pain. Allergies/Adverse Reactions: Allergies apple Allergy (Verified 08/15/17 11:19) Hives cinnamon Allergy (Verified 08/15/17 11:19) Hives metoprolol [From Toprol XL] Allergy (Verified 08/15/17 11:19) Swelling strawberry Allergy (Verified 08/15/17 11:19) Hives metformin Adverse Reaction (Verified 08/15/17 11:19) Other Medications to take at Discharge Amiloride HCl 5 mg PO DAILY 04/24/17 B Complex with Vitamin C [B-Complex with C] 1 each PO DAILY 04/24/17 Candesartan/Hydrochlorothiazid [Candesartan-Hctz 32-25 mg Tab] 1 each PO DAILY 04/24/17 Furosemide [Lasix] 20 mg PO QODAY 04/24/17 GlyBURIDE [Micronase] 2.5 mg PO DAILY@0800 04/24/17 Insulin Glargine,Hum.rec.anlog [Lantus] 12 unit SQ QHS 04/24/17 Multivitamin [Daily Multiple Vitamin] 1 each PO DAILY 04/24/17 Omeprazole 40 mg PO MOWEFR 04/24/17 Pioglitazone [Actos] 30 mg PO DAILY 04/24/17 Sitagliptin Phosphate [Januvia] 100 mg PO DAILY 04/24/17 Oxycodone HCl/Acetaminophen [Percocet 5-325] 1 - 2 tablet PO 4X/DAY PRN PRN #50 tablet 05/02/17 Calcium Carbonate/Vitamin D3 [Calcium 500-Vit D3 600 Tablet] 1 each PO DAILY 08/15/17 Sertraline HCl [Zoloft] 50 mg PO DAILY 08/15/17 Ciprofloxacin [Cipro] 500 mg PO BID #28 tab 08/23/17 Clarify Order 0 ea NOTE CLARIFY note 08/23/17 Glucerna Shake 120 ml PO 4X/DAY liquid 08/23/17 Hydrochlorothiazide [Hctz] 25 mg PO DAILY tablet 08/23/17 Insulin Detemir [Levemir FlexPen] 12 units SC HS insuln.pen 08/23/17 L. Acidophilus/Pectin, [place] [Acidophilus-Pectin Captab] 1 ea PO BID #30 tab 08/23/17 Linagliptin [Tradjenta] 5 mg PO DAILY tablet 08/23/17 Losartan Potassium [Cozaar] 100 mg PO DAILY tablet 08/23/17 Pantoprazole Sodium [Protonix] 40 mg PO MoWeFr@1000 tablet 08/23/17 ProMETHAzine [Phenergan] 25 mg PO 4X/DAY PRN PRN #30 tab 08/23/17 The following prescriptions were given: ProMETHAzine [Phenergan] 25 mg PO 4X/DAY PRN PRN #30 tab PRN Reason: NAUSEA/VOMITING Ciprofloxacin [Cipro] 500 mg PO BID #28 tab L. Acidophilus/Pectin, [place] [Acidophilus-Pectin Captab] 1 ea PO BID #30 tab Primary Care Physician: Bc Gray MD [Primary Care Provider] - Please Follow Up With: El Cao MD - call [phone] if any questions. When: saturday09/02/17 at [facility] at 1000 am. Proposed Discharge Date: 08/23/17
--- NOTE | 2017-08-23 14:32 | DCINST_ITS ---
You will use the following diet at home:: Calorie/Carbohydrate Controlled ( specify 1200, 1400, etc), Other - encourage nutritional supplementation wtih protein to help the healing process. Discharge Activity: May not drive while taking narcotic pain medications., May Shower - after the drain is removed. May shower in (days): 14 - may shower after the drain is removed. May resume sexual activity in: 4-6 weeks Weight Bearing Status: Weight bearing as tolerated Lifting Restrictions: 20 lbs. Call your doctor if your incision/area has: Continuous Slow Oozing, Sudden Increased Bleeding, Increased Pain/ Swelling, Increased Redness, Foul Smelling Discharge, Swelling at the incision site Call your doctor if you observe: Fever of 101 or Higher, Coldness, Increased Pain, Shortness of breath, Chest pain, Calf discomfort, Uncontrolled pain Suture Line Care: - - dry dressing daily. Change Dressing in (Days):: 1 - dry dressing daily. Cleanse incision/area with: - - may get incision wet in the shower after the drain is removed. Drain: Suction - mickey drain to bulb suction. empty and record output daily. Additional Dressing/Incision Instructions:: Wear abdominal binder. Additional Instructions: Patient has Percocet at home and will use them as needed for pain. Allergies/Adverse Reactions: Allergies apple Allergy (Verified 08/15/17 11:19) Hives cinnamon Allergy (Verified 08/15/17 11:19) Hives metoprolol [From Toprol XL] Allergy (Verified 08/15/17 11:19) Swelling strawberry Allergy (Verified 08/15/17 11:19) Hives metformin Adverse Reaction (Verified 08/15/17 11:19) Other Medications to take at Discharge Amiloride HCl 5 mg PO DAILY 04/24/17 B Complex with Vitamin C [B-Complex with C] 1 each PO DAILY 04/24/17 Candesartan/Hydrochlorothiazid [Candesartan-Hctz 32-25 mg Tab] 1 each PO DAILY 04/24/17 Furosemide [Lasix] 20 mg PO QODAY 04/24/17 GlyBURIDE [Micronase] 2.5 mg PO DAILY@0800 04/24/17 Insulin Glargine,Hum.rec.anlog [Lantus] 12 unit SQ QHS 04/24/17 Multivitamin [Daily Multiple Vitamin] 1 each PO DAILY 04/24/17 Omeprazole 40 mg PO MOWEFR 04/24/17 Pioglitazone [Actos] 30 mg PO DAILY 04/24/17 Sitagliptin Phosphate [Januvia] 100 mg PO DAILY 04/24/17 Oxycodone HCl/Acetaminophen [Percocet 5-325] 1 - 2 tablet PO 4X/DAY PRN PRN #50 tablet 05/02/17 Calcium Carbonate/Vitamin D3 [Calcium 500-Vit D3 600 Tablet] 1 each PO DAILY 08/01 Sertraline HCl [Zoloft] 50 mg PO DAILY 08/15/17 Ciprofloxacin [Cipro] 500 mg PO BID #28 tab 08/23/17 Clarify Order 0 ea NOTE CLARIFY note 08/23/17 Glucerna Shake 120 ml PO 4X/DAY liquid 08/23/17 Hydrochlorothiazide [Hctz] 25 mg PO DAILY tablet 08/23/17 Insulin Detemir [Levemir FlexPen] 12 units SC HS insuln.pen 08/23/17 L. Acidophilus/Pectin, [place] [Acidophilus-Pectin Captab] 1 ea PO BID #30 tab Linagliptin [Tradjenta] 5 mg PO DAILY tablet 08/23/17 Losartan Potassium [Cozaar] 100 mg PO DAILY tablet 08/23/17 Pantoprazole Sodium [Protonix] 40 mg PO MoWeFr@1000 tablet 08/23/17 ProMETHAzine [Phenergan] 25 mg PO 4X/DAY PRN PRN #30 tab 08/23/17 The following prescriptions were given: ProMETHAzine [Phenergan] 25 mg PO 4X/DAY PRN PRN #30 tab PRN Reason: NAUSEA/VOMITING Ciprofloxacin [Cipro] 500 mg PO BID #28 tab L. Acidophilus/Pectin, [place] [Acidophilus-Pectin Captab] 1 ea PO BID #30 tab Primary Care Physician: Bc Gray MD [Primary Care Provider] - Please Follow Up With: El Cao MD - call [phone] if any questions. When: saturday09/02/17 at [facility] at 1000 am. Proposed Discharge Date: 08/23/17
--- NOTE | 2017-08-23 14:34 | OP.PCM_ITS ---
Report of Operation Date of Procedure: 08/22/17 Pre-Operative Diagnosis: 1. Nonhealing infected diabetic ulcer right lower abdominal wall. 2. Diabetes mellitus. 3. s/p surgical preparation right lower abdominal wall with excision skin, subcutaneous tissue, and fascia with fascial closure for necrotizing soft tissue infected diabetic ulcer abscess ( 429 cm2). Post-Operative Diagnosis: Same. Surgery/Procedure Performed:: Surgical preparation right lower abdominal wall ( 175 cm2) with excision nonhealing infected diabetic ulcer and 35 cm complex secondary wound closure. Description of Surgical Findings:: 67-year-old female presented with a very painful nonhealing ulcer right lower abdominal wall that has been present since February. She has had two courses of Keflex antibiotics. Patient relates no fever, chills, myalgias or arthralgias. Patient has type II diabetes on multiple hypoglycemics as well as once a day insulin. A wound culture was done last week which showed Pseudomonas aeroginosa and Enterococcus faecalis. She complained of a lot of pain as well as burning from pins and needles stabbing her in the wound. She was taken to the OR on 04/29/17 where she underwent surgical preparation right lower abdominal wall with excision skin, subcutaneous tissue, and fascia with fascial closure for necrotizing soft tissue infected diabetic ulcer abscess (429 cm2). Postop she was treated with the VAC and antibiotics with Cefepime and Cipro and Flagyl. Operative cultures showed Pseudomonas aeroginosa and Anaerobic cocci. She presents today for further operative debridement and secondary wound closure. Her preop Hgb A1c was 6.2. Patient was informed of the risks and complications of the procedure including alternatives to surgery. These were discussed with her personally. She voiced understanding and wishes to proceed. I used Shania absorbable hemostat. Reference Number - [id number]. Lot Number - [id number]. Expiration - May 11, 2022. pension agent: Nicole Patricio. Type of Anesthesia:: General Specimen's removed: Nonhealing infected diabetic ulcer right lower abdominal wall to Pathology and Microbiology. Drains: Lj. Estimated Blood Loss (mL): 100 ml. Description of Procedure: Patient was taken to OR in supine position and was placed under general anesthesia. Her abdominal wall was prepped and draped in the usual fashion. SCD's were placed for DVT prophylaxis. Perioperative antibiotics were given intravenously. Using xylocaine with epinephrine, I infiltrated the nonhealing diabetic ulcer. After waiting 5 minutes for the anesthetic to take effect, I excised the nonhealing diabetic ulcer down to the abdominal wall fascia. There was some adherent scar tissue to the fascia that was excised. The underlying fascia was intact and looked healthy without evidence of fasciitis. This deeper tissue was sent to Microbiology for culture. The rest of the tissue was sent to Pathology for analysis to rule out carcinoma. The wound was irrigated with saline. Hemostasis was obtained with electrocautery. I then sprayed Shania absorbable hemostat into the wound to help minimize seroma formation postoperatively. A size 15 Lj drain was placed through a separate stab incision inferiorly and medially in the pubic area and secured to the skin with 3-0 Nylon suture. The wound was then closed in a multiple layer complex fashion with 2-0 Vicryl figure of eight interrupted sutures for the underlying Amanda's fascia. The deep dermis and subcutaneous tissue was approximated with 2-0 Vicryl interrupted sutures. The skin was approximated with 3-0 Vlock barbed unidirectional running subcuticular suture followed by Histoacryl skin tissue adhesive. Kerlix gauze was applied to the incision followed by ABD pads and compression tape dressing. An abdominal wall binder was applied. Patient tolerated the procedure well and was sent to PACU in satisfactory condition. She will be sent upstairs for surgical observation overnight stay. She will go home on antibiotics and pain medication. The drain will be removed in 10-14 days. She will wear the abdominal binder for several weeks. Grafts/Implants Used: None. - Complications None. - Admit VTE Documentation VTE Present on Admission: No VTE Mechan Device Prophylaxis: SCD's VTE Pharm Prophylaxis ordered?: No Code Visit Surgery Charges CPT - 90653 ICD-10 - L98.492, E11.622 76033 L98.492, E11.622 19754 L98.492, E11.622
== END 2017-08-23 14:58 | disposition home or self-care (01) ==
LOC: SDC 06:20 → AC 06:21 → MS3 09:43
PROVIDERS: Family Provider Family Medicine; PCP Family Medicine; Visit Provider Surgery
PROC: (CPT 13160; principal; 2017-08-22 07:45)
DX: E11.622 Type 2 diabetes mellitus with other skin ulcer (principal); L98.492 Non-pressure chronic ulcer of skin of other sites with fat layer exposed; B96.5 Pseudomonas (aeruginosa) (mallei) (pseudomallei) as the cause of diseases classified elsewhere; B95.2 Enterococcus as the cause of diseases classified elsewhere; I10 Essential (primary) hypertension; K21.9 Gastro-esophageal reflux disease without esophagitis; G47.33 Obstructive sleep apnea (adult) (pediatric); E66.9 Obesity, unspecified; Z68.42 Body mass index [BMI] 45.0-49.9, adult; Z79.4 Long term (current) use of insulin; Z79.84 Long term (current) use of oral hypoglycemic drugs; Z79.82 Long term (current) use of aspirin; Z79.899 Other long term (current) drug therapy
CPT/HCPCS: 00400; 13160; 15002; 15003; 36415; 80048; 82962; 83036; 84134; 85027; 87070; 87075; 87102; 87205; 87206; 88304; 88312; 97802; J7120; A4216; J2405

== ENCOUNTER 2017-09-09 08:30 | Outpatient (RCR) | payer MEDICARE, OTHER, SELFPAY ==
[2017-08-12 08:20] VITALS: BP 157/71
[2017-08-15 00:48] VITALS: PULSE 66; RESP 18; TEMP 35.7
[2017-09-02 09:58] VITALS: BP 151/73; PULSE 71; RESP 18; TEMP 36.2
--- NOTE | 2017-09-02 10:12 | WC ---
surgical wound closure on 08/22/17. photo taken today. no wound measurements.
--- NOTE | 2017-09-02 19:20 | PCM.WC.PN ---
Type of Wound Date of Service: 09/02/17 Chief Complaint: Nonhealing diabetic ulcer right lower abdominal wall, s/p wound closure. History of Wound: Surgery 08/22/17 - Surgical preparation right lower abdominal wall with excision nonhealing infected diabetic ulcer and 35 cm complex secondary wound closure. Operative culture - negative. She was treated with Cipro perioperatively. Prealbumin from 08/23/17 was 16.8. She takes nutritional supplementation with protein to help the healing process. Today she denies fever. Her appetite is good. Progress of Wound: Recent operative closure - 08/22/17. - Physical Exam Vital Signs Temp Pulse Resp BP 97.1 F L 71 18 151/73 H 09/02/17 09:58 09/02/17 09:58 09/02/17 09:58 09/02/17 09:58 Skin: Incision - Incision is dry and intact. Drainage has been about 100 ml per day. Wound Measurements and Assessment WC - Nurse 1 - General Ulcer Measurement Start: 09/02/17 09:58 Freq: Status: Active Protocol: Activity Type Activity Date Activity User E-Sign Co-Sign Detail Recorded Client Recorded Date Recorded By Document 09/02/17 09:58 [facility] [id number] 09/02/17 10:12 [facility] 09/02/17 09:58 Wound Center Nurse 1 [Ulcer Assessment] # ABD -Combined with other wound No -Date of Last Picture (Recall this 09/02/17 field) -Photo Taken Yes -Texture (Roro-wound Skin Appearance) No Abnormality -Moisture (Roro-wound Skin Appearance Assessed ) -Color (Roro-wound Skin Appearance) Assessed -Temperature (Roro-wound Skin No Abnormality Appearance) (Pt Warm) -Tenderness on Palpation (Roro-wound No Skin Appearance) -Ulcer Cleansing Wound Cleanser -Foul Odor after Cleansing No - Nurse 2 - General Ulcer CM Notes Start: 09/02/17 09:58 Freq: Status: Active Protocol: Activity Type Activity Date Activity User E-Sign Co-Sign Detail Recorded Client Recorded Date Recorded By Document 09/02/17 10:30 [id number] 09/02/17 10:33 09/02/17 10:30 Wound Center Nurse 2 [Procedure/Treatment] -Correct Patient No -Correct Side, Site, Position No -Correct Procedure No -Procedure Performed No -Wound/Ulcer Outcome Healed- Surgical Closure -Bleeding Controlled with Pressure [See Physician Procedure note for Specifics] Pain Scale: 0-10 Numeric [Pain] -Is Patient Pain Free? Yes Debridement Note Post-Debridement Measurements/Treatment WC - Nurse 2 - General Ulcer CM Notes Start: 09/02/17 09:58 Freq: Status: Active Protocol: Activity Type Activity Date Activity User E-Sign Co-Sign Detail Recorded Client Recorded Date Recorded By Document 09/02/17 10:30 [id number] 09/02/17 10:33 09/02/17 10:30 Wound Center Nurse 2 # ABD -Correct Patient No -Correct Side, Site, Position No -Correct Procedure No -Procedure Performed No -Wound/Ulcer Outcome Healed- Surgical Closure -Bleeding Controlled with Pressure Pain Scale: 0-10 Numeric Is Patient Pain Free? Yes Wound debrided: #1 Right lower abdominal wall. Laterality: Right Wound Grade/Stage: 4. No debridement was completed today - patient had recent wound closure on 08/22/17. Assessment/Plan Assessment: 1. Nonhealing infected diabetic ulcer necrotizing abscess right lower abdominal wall. 2. Skin necrosis. 3. Diabetes mellitus. 4. s/p surgical preparation right lower abdominal wall with excision skin, subcutaneous tissue, and fascia with fascial closure for necrotizing soft tissue infected diabetic ulcer abscess (429 cm2). 5. s/p surgical preparation right lower abdominal wall with excision nonhealing infected diabetic ulcer and 35 cm complex secondary wound closure. Plan: Continue Cipro until the drain is removed. Operative culture was negative. Prealbumin was 16.8 on 08/23/17. She takes nutritional supplementation with protein to help the healing process. She uses the abdominal wall binder, and it has been helpful. Followup one week. Will remove the drain next week.
[2017-09-09 08:22] VITALS: BP 179/70; PULSE 66; RESP 18; TEMP 35.7
--- NOTE | 2017-09-09 17:17 | PCM.WC.PN ---
Type of Wound Date of Service: 09/09/17 Chief Complaint: Nonhealing diabetic ulcer right lower abdominal wall, s/p wound closure. History of Wound: Surgery 08/22/17 - Surgical preparation right lower abdominal wall with excision nonhealing infected diabetic ulcer and 35 cm complex secondary wound closure. Operative culture - negative. She was treated with Cipro perioperatively. Prealbumin from 08/23/17 was 16.8. She takes nutritional supplementation with protein to help the healing process. Today she denies fever. Her appetite is good. Progress of Wound: Recent operative closure - 08/22/17. - Physical Exam Vital Signs Temp Pulse Resp BP 96.2 F L 66 18 179/70 H 09/09/17 08:22 09/09/17 08:22 09/09/17 08:22 09/09/17 08:22 Skin: Incision - incision is dry and intact. Wound Measurements and Assessment WC - Nurse 1 - General Ulcer Measurement Start: 09/02/17 09:58 Freq: Status: Active Protocol: Activity Type Activity Date Activity User E-Sign Co-Sign Detail Recorded Client Recorded Date Recorded By Document 09/09/17 08:22 DL [id number] 09/09/17 08:28 DL 09/09/17 08:22 Wound Center Nurse 1 [Ulcer Assessment] # ABD -Combined with other wound No -Current Size (cm) - Length 0.1 -Current Size (cm) - Width 0.1 -Current Size (cm) - Depth 0.1 -Total Square Cm 0.01 -Photo Taken No -Epithelialization Large 67-100% -Tunneling No -Undermining/Tunneling No -Circular Undermining No -Classification - Thickness Full Thickness without Exposed Support Structure -Exudate Amt None Present (0 %) -Wound Margin Distinct, Outline Attached -Granulation Amt Large (67-100%) -Granulation Quality [place] -Slough/Fibrin No -Necrosis Amt None Present (0 %) -Structure Exposed None/Limited to Skin Breakdown -Texture (Roro-wound Skin Appearance) Localized Edema Scarring -Moisture (Roro-wound Skin Appearance No Abnormality ) -Color (Roro-wound Skin Appearance) Erythema -Temperature (Roro-wound Skin No Abnormality Appearance) (Pt Warm) -Tenderness on Palpation (Roro-wound No Skin Appearance) -Ulcer Cleansing Rinsed/ Irrigated with Saline -Foul Odor after Cleansing No [Edema Assessment] -Lower Limb Edema Present No WC - Nurse 2 - General Ulcer CM Notes Start: 09/02/17 09:58 Freq: Status: Active Protocol: Activity Type Activity Date Activity User E-Sign Co-Sign Detail Recorded Client Recorded Date Recorded By Document 09/09/17 09:06 [id number] 09/09/17 09:07 09/09/17 09:06 Wound Center Nurse 2 [Procedure/Treatment] # ABD -Correct Patient No -Correct Side, Site, Position No -Correct Procedure No -Procedure Performed No -Wound/Ulcer Outcome Healed- Flap [See Physician Procedure note for Specifics] Pain Scale: 0-10 Numeric [Pain] -Is Patient Pain Free? Yes Debridement Note Post-Debridement Measurements/Treatment WC - Nurse 2 - General Ulcer CM Notes Start: 09/02/17 09:58 Freq: Status: Active Protocol: Activity Type Activity Date Activity User E-Sign Co-Sign Detail Recorded Client Recorded Date Recorded By Document 09/02/17 10:30 [id number] 09/02/17 10:33 Document 09/09/17 09:06 [id number] 09/09/17 09:07 09/02/17 09/09/17 10:30 09:06 Wound Center Nurse 2 # ABD -Correct Patient No No -Correct Side, Site, Position No No -Correct Procedure No No -Procedure Performed No No -Wound/Ulcer Outcome Healed- Healed- Flap Surgical Closure -Bleeding Controlled with Pressure Pain Scale: 0-10 Numeric Is Patient Pain Free? Yes Yes Wound debrided: #1 Right lower abdominal wall. Laterality: Right Wound Grade/Stage: 4. No debridement was completed today - Patient had recent wound closure on 08/22/17. Assessment/Plan Assessment: 1. Nonhealing infected diabetic ulcer necrotizing abscess right lower abdominal wall. 2. Skin necrosis. 3. Diabetes mellitus. 4. s/p surgical preparation right lower abdominal wall with excision skin, subcutaneous tissue, and fascia with fascial closure for necrotizing soft tissue infected diabetic ulcer abscess (429 cm2). 5. s/p surgical preparation right lower abdominal wall with excision nonhealing infected diabetic ulcer and 35 cm complex secondary wound closure. Plan: The drain was removed today. May stop the Cipro now that the drain is removed. Operative culture was negative. Prealbumin was 16.8 on 08/23/17. She takes nutritional supplementation with protein to help the healing process. Continue abdominal wall binder. Followup 2 weeks.
--- NOTE | 2017-09-10 23:58 | PN.PCM_ITS ---
Type of Wound Date of Service: 09/09/17 Chief Complaint: Nonhealing diabetic ulcer right lower abdominal wall, s/p wound closure. History of Wound: Surgery 08/22/17 - Surgical preparation right lower abdominal wall with excision nonhealing infected diabetic ulcer and 35 cm complex secondary wound closure. Operative culture - negative. She was treated with Cipro perioperatively. Prealbumin from 08/23/17 was 16.8. She takes nutritional supplementation with protein to help the healing process. Today she denies fever. Her appetite is good. Progress of Wound: Recent operative closure - 08/22/17. - Physical Exam Vital Signs Temp Pulse Resp BP 96.2 F L 66 18 179/70 H 09/09/17 08:22 09/09/17 08:22 09/09/17 08:22 09/09/17 08:22 Skin: Incision - incision is dry and intact. Wound Measurements and Assessment WC - Nurse 1 - General Ulcer Measurement Start: 09/02/17 09:58 Freq: Status: Active Protocol: Activity Type Activity Date Activity User E-Sign Co-Sign Detail Recorded Client Recorded Date Recorded By Document 09/09/17 08:22 DL [id number] 09/09/17 08:28 DL 09/09/17 08:22 Wound Center Nurse 1 [Ulcer Assessment] # ABD -Combined with other wound No -Current Size (cm) - Length 0.1 -Current Size (cm) - Width 0.1 -Current Size (cm) - Depth 0.1 -Total Square Cm 0.01 -Photo Taken No -Epithelialization Large 67-100% -Tunneling No -Undermining/Tunneling No -Circular Undermining No -Classification - Thickness Full Thickness without Exposed Support Structure -Exudate Amt None Present (0 %) -Wound Margin Distinct, Outline Attached -Granulation Amt Large (67-100%) -Granulation Quality [place] -Slough/Fibrin No -Necrosis Amt None Present (0 %) -Structure Exposed None/Limited to Skin Breakdown -Texture (Roro-wound Skin Appearance) Localized Edema Scarring -Moisture (Roro-wound Skin Appearance No Abnormality ) -Color (Roro-wound Skin Appearance) Erythema -Temperature (Roro-wound Skin No Abnormality Appearance) (Pt Warm) -Tenderness on Palpation (Roro-wound No Skin Appearance) -Ulcer Cleansing Rinsed/ Irrigated with Saline -Foul Odor after Cleansing No [Edema Assessment] -Lower Limb Edema Present No WC - Nurse 2 - General Ulcer CM Notes Start: 09/02/17 09:58 Freq: Status: Active Protocol: Activity Type Activity Date Activity User E-Sign Co-Sign Detail Recorded Client Recorded Date Recorded By Document 09/09/17 09:06 [id number] 09/09/17 09:07 09/09/17 09:06 Wound Center Nurse 2 [Procedure/Treatment] # ABD -Correct Patient No -Correct Side, Site, Position No -Correct Procedure No -Procedure Performed No -Wound/Ulcer Outcome Healed- Flap [See Physician Procedure note for Specifics] Pain Scale: 0-10 Numeric [Pain] -Is Patient Pain Free? Yes Debridement Note Post-Debridement Measurements/Treatment WC - Nurse 2 - General Ulcer CM Notes Start: 09/02/17 09:58 Freq: Status: Active Protocol: Activity Type Activity Date Activity User E-Sign Co-Sign Detail Recorded Client Recorded Date Recorded By Document 09/02/17 10:30 [id number] 09/02/17 10:33 Document 09/09/17 09:06 [id number] 09/09/17 09:07 09/02/17 09/09/17 10:30 09:06 Wound Center Nurse 2 # ABD -Correct Patient No No -Correct Side, Site, Position No No -Correct Procedure No No -Procedure Performed No No -Wound/Ulcer Outcome Healed- Healed- Flap Surgical Closure -Bleeding Controlled with Pressure Pain Scale: 0-10 Numeric Is Patient Pain Free? Yes Yes Wound debrided: #1 Right lower abdominal wall. Laterality: Right Wound Grade/Stage: 4. No debridement was completed today - Patient had recent wound closure on 08/22/17. Assessment/Plan Assessment: 1. Nonhealing infected diabetic ulcer necrotizing abscess right lower abdominal wall. 2. Skin necrosis. 3. Diabetes mellitus. 4. s/p surgical preparation right lower abdominal wall with excision skin, subcutaneous tissue, and fascia with fascial closure for necrotizing soft tissue infected diabetic ulcer abscess (429 cm2). 5. s/p surgical preparation right lower abdominal wall with excision nonhealing infected diabetic ulcer and 35 cm complex secondary wound closure. Plan: The drain was removed today. May stop the Cipro now that the drain is removed. Operative culture was negative. Prealbumin was 16.8 on 08/23/17. She takes nutritional supplementation with protein to help the healing process. Continue abdominal wall binder. Followup 2 weeks.
== END 2017-09-11 23:59 ==
LOC: WC 08:30
PROVIDERS: Family Provider Family Medicine; PCP Family Medicine; Visit Provider Surgery
DX: E11.622 Type 2 diabetes mellitus with other skin ulcer (principal); L98.499 Non-pressure chronic ulcer of skin of other sites with unspecified severity
CPT/HCPCS: 99213; G0463

== ENCOUNTER 2017-09-24 11:40 | Outpatient (RCR) | payer MEDICARE, OTHER, SELFPAY ==
[2017-09-12 00:38] VITALS: BP 157/71; PULSE 66; RESP 18; TEMP 35.7
[2017-09-24 13:32] VITALS: BP 192/85; PULSE 72; RESP 18; TEMP 35.9
--- NOTE | 2017-09-24 22:10 | PCM.WC.PN ---
Type of Wound Date of Service: 09/24/17 Chief Complaint: Nonhealing infected diabetic ulcer abscess right lower abdominal wall. History of Wound: Surgery 08/22/17 - Surgical preparation right lower abdominal wall with excision nonhealing infected diabetic ulcer and 35 cm complex secondary wound closure. Operative culture - negative. She was treated with Cipro perioperatively and has finished them. Prealbumin from 08/23/17 was 16.8. She takes nutritional supplementation with protein to help the healing process. Today she denies fever. Her appetite is good. Progress of Wound: Recent operative closure - 08/22/17. - Physical Exam Vital Signs Temp Pulse Resp BP 96.7 F L 72 18 192/85 H 09/24/17 13:32 09/24/17 13:32 09/24/17 13:32 09/24/17 13:32 Skin: Incision - incision is dry and intact and healing satisfactory. No clinical evidence of seroma. Wound Measurements and Assessment WC - Nurse 1 - General Ulcer Measurement Start: 09/24/17 13:31 Freq: Status: Active Protocol: Activity Type Activity Date Activity User E-Sign Co-Sign Detail Recorded Client Recorded Date Recorded By Document 09/24/17 13:32 DL [id number] 09/24/17 13:38 DL 09/24/17 13:32 Wound Center Nurse 1 [Ulcer Assessment] # ABD -Current Size (cm) - Length 0.2 -Current Size (cm) - Width 0.3 -Current Size (cm) - Depth 0.1 -Total Square Cm 0.06 -Photo Taken No -Exudate Amt None Present (0 %) -Wound Margin Flat & Intact -Granulation Amt Large (67-100%) -Granulation Quality Pale -Necrosis Amt None Present (0 %) -Structure Exposed N/A -Texture (Roro-wound Skin Appearance) Scarring -Moisture (Roro-wound Skin Appearance No Abnormality ) -Color (Roro-wound Skin Appearance) No Abnormality -Temperature (Roro-wound Skin No Abnormality Appearance) (Pt Warm) -Ulcer Cleansing Rinsed/ Irrigated with Saline -Foul Odor after Cleansing No -Anesthetic Used 4% Lidocaine Solution WC - Nurse 2 - General Ulcer CM Notes Start: 09/24/17 13:31 Freq: Status: Active Protocol: Activity Type Activity Date Activity User E-Sign Co-Sign Detail Recorded Client Recorded Date Recorded By Document 09/24/17 13:58 [id number] 09/24/17 13:59 09/24/17 13:58 Wound Center Nurse 2 [Procedure/Treatment] -Correct Patient No -Correct Side, Site, Position No -Correct Procedure No -Procedure Performed No [See Physician Procedure note for Specifics] Pain Scale: 0-10 Numeric [Pain] -Is Patient Pain Free? Yes Debridement Note Post-Debridement Measurements/Treatment WC - Nurse 2 - General Ulcer CM Notes Start: 09/24/17 13:31 Freq: Status: Active Protocol: Activity Type Activity Date Activity User E-Sign Co-Sign Detail Recorded Client Recorded Date Recorded By Document 09/24/17 13:58 [id number] 09/24/17 13:59 09/24/17 13:58 Wound Center Nurse 2 # ABD -Correct Patient No -Correct Side, Site, Position No -Correct Procedure No -Procedure Performed No Pain Scale: 0-10 Numeric Is Patient Pain Free? Yes Wound debrided: #1 Right lower abdominal wall. Laterality: Right Wound Grade/Stage: 4. No debridement was completed today - Patient had wound closure on 08/22/17. Assessment/Plan Assessment: 1. Nonhealing infected diabetic ulcer necrotizing abscess right lower abdominal wall. 2. Skin necrosis. 3. Diabetes mellitus. 4. s/p surgical preparation right lower abdominal wall with excision skin, subcutaneous tissue, and fascia with fascial closure for necrotizing soft tissue infected diabetic ulcer abscess (429 cm2). 5. s/p surgical preparation right lower abdominal wall with excision nonhealing infected diabetic ulcer and 35 cm complex secondary wound closure. Plan: The incision remains healed. She is finished the Cipro now that the drain is removed. Operative culture was negative. Prealbumin was 16.8 on 08/23/17. She takes nutritional supplementation with protein to help the healing process. Continue abdominal wall binder for another couple of weeks. Massage incision with skin lotion daily to help soften up the scar. Followup on an as needed basis.
== END 2017-10-12 23:59 ==
LOC: WC 11:40
PROVIDERS: Family Provider Family Medicine; PCP Family Medicine; Visit Provider Surgery
DX: Z09 Encounter for follow-up examination after completed treatment for conditions other than malignant neoplasm (principal); E11.9 Type 2 diabetes mellitus without complications
CPT/HCPCS: 99212; G0463

== ENCOUNTER 2018-12-25 11:40 | Emergency (ER) | payer MEDICARE, OTHER, SELFPAY ==
[2017-08-22 11:04] VITALS: BMI 49.1
[2018-12-25 11:42] VITALS: BP 192/119; PULSE 54; RESP 20; TEMP 37; O2SAT 100; BMI 45.6
--- NOTE | 2018-12-25 13:04 | CT_ITS ---
STUDY: CT BRAIN WITHOUT CONTRAST REASON FOR EXAM: Female, 68 years old. One week history of vertigo and dizziness. RADIATION DOSAGE (If Supplied By Facility): CTDIvol = ( 44.99 ) mGy, DLP = ( 762.36 ) mGycm TECHNIQUE: Transaxial CT imaging of the brain was performed without administration of intravenous contrast material. Individualized dose optimization techniques were used for this CT. COMPARISON: No relevant priors. FINDINGS: Normal soft tissue structures. Normal calvarium. Normal size ventricles and extra-axial spaces for the patient's age. Normal white matter tracts of the cerebral hemispheres. Normal basal ganglia and thalami. Normal brainstem. Normal cerebellum. There is no intracranial hemorrhage. There are no findings of an acute ischemic infarction. Atherosclerotic calcification of the cavernous portions of the internal carotid arteries bilaterally. Mucosal thickening along the posterior aspect of the right maxillary sinus. CT/Brain/Head without Contrast IMPRESSION: Normal unenhanced CT scan of the brain. Electronically Signed: Jimmy Miguel, at 14:35 EDT , Service support ,
--- NOTE | 2018-12-25 13:05 | EKG12_ITS ---
Test Reason : DIZZY Blood Pressure : / mmHG Vent. Rate : 048 BPM Atrial Rate : 048 BPM P-R Int : 214 ms QRS Dur : 102 ms QT Int : 428 ms P-R-T Axes : 041 -18 006 degrees QTc Int : 382 ms Sinus bradycardia with 1st degree A-V block Possible Inferior infarct , age undetermined Abnormal ECG Confirmed by ROEL MCCOLLUM ([id number]), society editor ANTONIA PRADO ([id number]) on 12/29/2018 1:15:17 PM Referred By: JASEN/MANI Confirmed By:ELEN MCCOLLUM
--- NOTE | 2018-12-25 13:05 | RAD_ITS ---
STUDY: X-RAY CHEST REASON FOR EXAM: Female, 68 years old. Chest pain. TECHNIQUE: Single AP portable view of the chest. COMPARISON: Comparison is made with prior study dated August 18, 2015. FINDINGS: EKG electrodes are seen. The lungs are clear and expanded. There is no demonstrated pleural abnormality. Normal size heart. Normal mediastinum and brenna. Normal visualized pulmonary arteries. Normal visualized aortic arch and descending thoracic aorta. There are diffuse degenerative changes of the visualized thoracic spine. Calcific tendinitis of the left shoulder. There is no demonstrated abnormality of the visualized soft tissue structures of the upper abdomen. RAD/Chest 1 View (Portable) IMPRESSION: No acute abnormality is seen. Electronically Signed: Jimmy Miguel, at 14:00 EDT , Service support ,
[2018-12-25 14:03] VITALS: PULSE 57; RESP 20; O2SAT 100
[2018-12-25 14:04] LABS: Absolute Lymphocyte Count 1.17 X10^3/ul (0.83-4.51); Absolute Neutrophil Count 4.3 X10^3/uL (2.0-7.7); Basophil# 0.02 X10^3/uL; Basophil% 0.3 % (0-1); Eosinophil# 0.13 X10^3/uL; Eosinophils% 2.2 % (0-5); Hematocrit 37.1 % (37-47); Hemoglobin 12.5 g/dl (12.0-15.0); Lymphocyte # 1.17 X10^3/ul (4.0); Lymphocyte % 19.6 % (19-41); Mean Corp Hgb Conc 33.7 g/gl (32-36); Mean Corpuscular Hgb 30.8 pg (27.0-32.0); Mean Corpuscular Volume 91.4 fL (81-99); Mean Platelet Vol. 11.5 fl (6.2-12.0); Monocyte# 0.34 X10^3/uL; Monocyte% 5.7 % (0-10); Platelet Count 140 K/mm3 (150-450); RBC Distribution Width CV 13.2 % (11.6-14.6); RBC Distribution Width SD 43.8 fl (35.1-43.9); Red Blood Count 4.06 M/mm3 (4.2-5.4)
[2018-12-25 14:09] LABS: POSITIVE COUNT NO; POSITIVE DIFFERENTIAL NO; POSITIVE MORPHOLOGY NO
[2018-12-25 14:26] LABS: ALB/GLOB Ratio 1.1 RATIO (0.9-2.4); AST(SGOT) 21 U/L (15-37); Alanine Aminotransfer ALT/SGPT 34 U/L (13-56); Albumin, Serum 3.5 g/dL (3.2-5.0); Alkaline Phosphatase 44 U/L (45-117); Anion Gap 4 (5-15); BUN 36 mg/dL (7-18); BUN/Creat Ratio 43.3 RATIO (10-20); Calcium,Total 9.3 mg/dL (8.5-10.1); Chloride 109 mmol/L (98-107); Creatinine, Serum 0.83 mg/dL (0.55-1.02); EST Glomerular Filtration Rate 73 mL/min (>60); Est Glom Filt Rate - Afr Amer 88 mL/min (>60); Estimated Creatinine Clearance 57.57 ml/min; Globulin 3.3 g/dL (2.2-4.2); Glucose 66 mg/dL (74-106); Lipase 102 U/L (73-393); Potassium 3.6 mmol/L (3.5-5.1); Protein, Total 6.8 g/dL (6.4-8.2); Sodium Level 138 mmol/L (136-145)
[2018-12-25 14:45] LABS: International Normalized Ratio 1.1; Prothrombin Time (Protime)PT. 13.6 SECONDS (11.7-14.9)
[2018-12-25 14:49] LABS: D-Dimer Quantitative (DVT/PE) 0.28 FEU/ug/m (0.27-0.49)
--- NOTE | 2018-12-25 15:28 | CT_ITS ---
STUDY: CTA OF THE BRAIN REASON FOR EXAM: Female, 68 years old. Dizziness RADIATION DOSAGE (If Supplied By Facility): CTDIvol = ( 20.64 ) mGy, DLP = ( 782.39 ) mGycm TECHNIQUE: CT angiography was performed with a multi-detector CT scanner. Data acquisition was obtained from the skull base through the vertex following intravenous administration of 100 IV Isovue 370. MIP images were reconstructed from the axial data set. Post-processing of the angiographic images was performed, with multiplanar reformation and 3D reconstruction. Individualized dose optimization techniques were used for this CT. COMPARISON: None. FINDINGS: Normal bilateral petrous carotid arteries. Normal right cavernous carotid artery with a normal supraclinoid bifurcation. Normal left cavernous carotid artery with a normal supraclinoid bifurcation. Normal right A1 segments of the anterior cerebral artery. Normal left A1 segments of the anterior cerebral artery. Normal intact anterior communicating artery (ACOM). Normal bilateral A2 segments of the anterior cerebral arteries. Normal right M1 and M2 segments of the middle cerebral arteries, with a normal M1 bifurcation. Normal left M1 and M2 segments of the middle cerebral arteries, with a normal M1 bifurcation. Normal right posterior communicating artery (PCOM). Normal left posterior communicating artery (PCOM). Normal bilateral vertebral arteries. Normal basilar artery with a normal basilar bifurcation. The visualized bilateral superior cerebellar (SCA) arteries are normal. Normal bilateral P1, P2 and visualized P3 segments of the posterior cerebral arteries. There is no demonstrated aneurysm of the three affiliated of [place]. There is no demonstrated abnormality of the visualized brain. CT/CTA Head W/WO Contrast IMPRESSION: Normal three affiliated of [place] without a demonstrated aneurysm or hemodynamically significant stenosis. Electronically Signed: Loki Pepper MD at 16:14 EDT Tel , Service support ,
--- NOTE | 2018-12-25 15:28 | CT_ITS ---
STUDY: CTA NECK WITH CONTRAST REASON FOR EXAM: Female, 68 years old. Dizziness RADIATION DOSAGE (If Supplied By Facility): CTDIvol = ( 20.64 ) mGy, DLP = ( 782.39 ) mGycm TECHNIQUE: CT angiography with multi-detector data acquisition was performed from the aortic arch to the skull base following intravenous administration of 100 IV Isovue 370. MIP images were reconstructed from the axial data set. Post-processing of the angiographic images was performed, with multiplanar reformation and 3D reconstruction. Individualized dose optimization techniques were used for this CT. COMPARISON: None. FINDINGS: AORTIC ARCH: Normal visualized aortic arch. Normal origins of the brachiocephalic, left common carotid, and left subclavian arteries. RIGHT CAROTID ARTERIES: Normal right common carotid artery (CCA). There is mild atherosclerotic plaque formation with minimal narrowing of the right carotid bulb. Normal origin of the right internal carotid (ICA) artery without a hemodynamically significant stenosis. Normal visualized cervical portion of the right internal carotid artery. Normal origin of the right external carotid artery (ECA). LEFT CAROTID ARTERIES: Normal left common carotid artery (CCA). There is mild atherosclerotic plaque formation with minimal narrowing of the left carotid bulb. Normal origin of the left internal carotid (ICA) artery without a hemodynamically significant stenosis. Normal visualized cervical portion of the left internal carotid artery. There is mild atherosclerotic plaque formation of the origin of the left external carotid artery with less than 50% cross sectional diameter stenosis. VERTEBRAL ARTERIES: Normal bilateral vertebral arteries. CT/CTA Neck W/WO Contrast IMPRESSION: 1. Mild amount of calcified plaque at the carotid bifurcation bilaterally producing a mild (20%) stenosis bilaterally. 2. Patent vertebral arteries bilaterally. Electronically Signed: Loki Pepper MD at 16:16 EDT Tel , Service support ,
[2018-12-25] MEDS: Meclizine HCl 25 MG Tablet PO (15:48)
[2018-12-25 16:17] VITALS: BP 161/59; PULSE 65; RESP 23; O2SAT 98
--- NOTE | 2018-12-25 16:23 | ED.VISSUMM ---
- ER Visit Summary Date of Service: 12/25/18 Chief Complaint: Dizziness History of Present Illness: The patient is a 68 F who presents with dizziness. She describes this both as a vertigo sensation as well as lightheadedness. Symptoms have been going on for about 2 weeks. They were worse over the past 6 days. Patient also reports some upper abdominal fullness but denies any other GI symptoms. Denies any urinary symptoms. Denies chest pain or shortness of breath. She never had symptoms like this in the past. She does have a history of diabetes, hypertension, hyperlipidemia, and sleep apnea. She takes aspirin but no other blood thinners. Physical Examination: Blood pressure 192/119. Heart rate 54. Otherwise vital signs unremarkable. Head and neck atraumatic. HEENT exam unremarkable. Cranial nerves grossly intact. Heart regular. Lungs clear. Skin appears normal. Good strength and sensation. No focal or lateralizing neurologic abnormalities. Test Results: EKG showed sinus rhythm at a rate of 48. No sign of acute ischemia or infarction pattern. CBC unremarkable. Chloride 109, glucose 66, BUN 36, alkaline phosphatase 44. Lipase normal. Coags unremarkable. Troponin normal. D-dimer negative. CT brain showed no acute process. Chest x-ray was unremarkable. Emergency Department Course and Treatment: Patient presented with dizziness. Her EKG showed bradycardia with first-degree block. Patient was placed on a monitor. She did have heart rates in the 50s and 60s. No further bradycardia less than 54. Patient was hypertensive on arrival but repeat blood pressure was 161/59 without intervention. Patient did not have focal neurologic symptoms. Her CT was unremarkable. Blood work otherwise was unremarkable. On reevaluation, patient had ambulated. She was feeling better and requesting discharge. I advised her that her symptoms could be related to her heart rate blood pressure, or possible stroke. Patient was requesting outpatient follow-up. I advised CTA head and neck prior to discharge. These showed mild 20% stenosis at the bilateral carotid bifurcations. No other acute finding. Patient is doing well and would still like to follow-up as an outpatient. She was advised to return if she has any new or worsening issues. Repeat blood pressure 161/59 and heart rate 65. Treatment Plan: As above Disposition: Discharge Impression: 1. Dizziness This note was generated with EchoPixel[employer] software. It may contain incorrect words, spelling, and punctuation that were not noted in review of the chart prior to signing ED Disposition - Plan for ED Patient: Referrals: Bc Gray MD [Primary Care Provider] -
--- NOTE | 2018-12-25 16:27 | ED.DCSUM_ITS ---
- ER Visit Summary Date of Service: 12/25/18 Chief Complaint: Dizziness History of Present Illness: The patient is a 68 F who presents with dizziness. She describes this both as a vertigo sensation as well as lightheadedness. Symptoms have been going on for about 2 weeks. They were worse over the past 6 days. Patient also reports some upper abdominal fullness but denies any other GI symptoms. Denies any urinary symptoms. Denies chest pain or shortness of breath. She never had symptoms like this in the past. She does have a history of diabetes, hypertension, hyperlipidemia, and sleep apnea. She takes aspirin but no other blood thinners. Physical Examination: Blood pressure 192/119. Heart rate 54. Otherwise vital signs unremarkable. Head and neck atraumatic. HEENT exam unremarkable. Cranial nerves grossly intact. Heart regular. Lungs clear. Skin appears amparo l. Good strength and sensation. No focal or lateralizing neurologic abnormalities. Test Results: EKG showed sinus rhythm at a rate of 48. No sign of acute ischemia or infarction pattern. CBC unremarkable. Chloride 109, glucose 66, BUN 36, alkaline phosphatase 44. Lipase normal. Coags unremarkable. Troponin normal. D-dimer negative. CT brain showed no acute process. Chest x-ray was unremarkable. Emergency Department Course and Treatment: Patient presented with dizziness. Her EKG showed bradycardia with first-degree block. Patient was placed on a monitor. She did have heart rates in the 50s and 60s. No further bradycardia less than 54. Patient was hypertensive on arrival but repeat blood pressure was 161/59 without intervention. Patient did not have focal neurologic symptoms. Her CT was unremarkable. Blood work otherwise was unremarkable. On reevaluation, patient had ambulated. She was feeling better and requesting discharge. I advised her that her symptoms could be related to her heart rate blood pressure, or possible stroke. Patient was requesting outpatient follow- up. I advised CTA head and neck prior to discharge. These showed mild 20% stenosis at the bilateral carotid bifurcations. No other acute finding. Patient is doing well and would still like to follow-up as an outpatient. She w as advised to return if she has any new or worsening issues. Repeat blood pressure 161/59 and heart rate 65. Treatment Plan: As above Disposition: Discharge Impression: 1. Dizziness This note was generated with [employer] software. It may contain incorrect words, spelling, and punctuation that were not noted in review of the chart prior to signing ED Disposition - Plan for ED Patient: Referrals: Bc Gray MD [Primary Care Provider] -
--- NOTE | 2018-12-25 16:27 | ED.DEP ---
ED Disposition - Plan for ED Patient: Instructions: ED Dizziness [facility]O Prescriptions: Meclizine HCl 25 mg PO Q8H PRN PRN #20 tab.chew PRN Reason: Dizziness Referrals: Bc Gray MD [Primary Care Provider] -
[2018-12-25 16:54] VITALS: BP 180/86; PULSE 67; RESP 19; O2SAT 97
== END 2018-12-25 16:54 | disposition home or self-care (01) ==
PROVIDERS: Emergency Provider Emergency Medicine; Family Provider Family Medicine; PCP Family Medicine
DX: R42 Dizziness and giddiness (principal); I65.23 Occlusion and stenosis of bilateral carotid arteries; E11.9 Type 2 diabetes mellitus without complications; I10 Essential (primary) hypertension; E78.5 Hyperlipidemia, unspecified; G47.33 Obstructive sleep apnea (adult) (pediatric); Z79.82 Long term (current) use of aspirin; Z79.4 Long term (current) use of insulin; Z79.899 Other long term (current) drug therapy
CPT/HCPCS: 70450; 70496; 70498; 71045; 80053; 83690; 84484; 85025; 85379; 85610; 85730; 93005; 99285; Q9967; A4216

== ENCOUNTER 2020-11-08 10:38 | Day surgery (SDC) | payer MEDICARE, OTHER, SELFPAY ==
[2020-09-01 14:20] VITALS: BMI 38.0
--- NOTE | 2020-11-07 21:23 | HP.PCM_ITS ---
History and Physical Date of Admission: 11/08/20 panied by: None Is patient in pain?: No Allergies cephalexin [From Keflex] Allergy (Severe, Verified 09/01/20 14:17) Rash OSCAR Inhibitors Allergy (Intermediate, Verified 09/01/20 14:17) cough Phjbuao-Knt-Sqv Reductase Inhibitor Allergy (Intermediate, Verified 09/01/20 14 :17) myalgia apple Allergy (Verified 12/25/18 11:42) Hives cinnamon Allergy (Verified 12/25/18 11:42) Hives metoprolol [From Toprol XL] Allergy (Verified 12/25/18 11:42) Swelling strawberry Allergy (Verified 12/25/18 11:42) Hives adhesive tape Adverse Reaction (Severe, Verified 09/01/20 14:17) skin breakdown metformin Adverse Reaction (Verified 12/25/18 14:28) Other Medications Amiloride HCl 10 mg PO DAILY 04/24/17 [History Confirmed 09/01/20] B-Complex with Vitamin C [B-Complex with C] 1 ea PO DAILY 04/24/17 [History Confirmed 09/01/20] Candesartan/Hydrochlorothiazid [Candesartan-Hctz 32-25 mg Tab] 1 ea PO DAILY 04/24/17 [History Confirmed 09/01/20] Furosemide [Lasix] 20 mg PO QODAY 04/24/17 [History Confirmed 09/01/20] Multivitamin [Daily Multiple Vitamin] 1 ea PO DAILY 04/24/17 [History Confirmed 09/01/20] Omeprazole 40 mg PO TUFR 04/24/17 [History Confirmed 12/25/18] Sitagliptin Phosphate [Januvia] 50 mg PO DAILY 04/24/17 [History Confirmed 12/25/18] glyBURIDE [Micronase] 2.5 mg PO DAILY@0800 04/24/17 [History Confirmed 09/01/20] Calcium Carbonate/Vitamin D3 [Calcium 500-Vit D3 600 Tablet] 1 ea PO DAILY 08/15/17 [History Confirmed 09/01/20] Aspirin [Aspir-Low] 81 mg PO DAILY 12/25/18 [History Confirmed 09/01/20] Insulin Glargine,Hum.rec.anlog [Berenice Inman] 8 units SQ DAILY 12/25/18 [History Confirmed 09/01/20] Lovastatin [Mevacor] 10 mg PO DAILY 12/25/18 [History Confirmed 12/25/18] Meclizine HCl 25 mg PO Q8H PRN PRN #20 tab.chew 12/25/18 [Rx] Meloxicam [Mobic] 15 mg PO DAILY PRN PRN 12/25/18 [History Confirmed 12/25/18] [place]-3 Fatty Acids/Fish Oil [Fish Oil 1,000 mg Capsule] 1 ea PO DAILY 12/25/18 [History Confirmed 12/25/18] Post menopausal: Yes PFSH Medical History Subcutaneous mass of back (Chronic) Allergies (Acute) Anemia (Acute) Carpal tunnel syndrome (Acute) Cataracts, bilateral (Acute) Diabetes (Acute) GERD (gastroesophageal reflux disease) (Acute) High cholesterol (Acute) High triglycerides (Acute) Neuropathy (Acute) UTI (urinary tract infection) (Acute) Umbilical hernia (Acute) High blood pressure (Chronic) Abdominal wall ulcer (Resolved) Surgical History History of delivery (Acute) History of cholecystectomy (Acute) History of colon surgery (Acute) History of partial hysterectomy (Acute) Surgical preparation right lower abdominal wall with excision skin, subcutaneous tissue, and fascia with fascial closure for necrotizing soft tissue infected diabetic ulcer abscess (429 cm2) - 04/29/17 Surgical preparation right lower abdominal wall (175 cm2) with excision nonhealing infected diabetic ulcer and 35 cm complex secondary wound closure - 08/22/17 Family History Father , from colon cancer Colon cancer Son Cerebral palsy Epilepsy Sister Diabetes Heart disease Hypertension Other Family history of skin cancer Social History (Updated 09/03/20 @ 17:[address] El Cao MD) Smoking Status: Never smoker HPI evaluation soft tissue mass left upper back: Details: HISTORY OF PRESENT ILLNESS 70 year old woman presents with a soft tissue mass left upper back that has been increasing in size over the last several months. There is some discomfort when bumped. She denies trauma. She denies fever. She denies infection. She states the mass is becoming more noticeable through her clothes. She presents at this time for further evaluation and treatment. REVIEW OF SYSTEMS General - Denies fever, fatigue, and weight loss. Eyes - Has cataracts. Denies glaucoma. ENT - Denies nasal congestion and sore throat. Endocrine - Denies excessive thirst and urination. Has cold intolerance. Skin - Denies skin cancer. Has enlarging soft tissue mass left upper back. Has family history of skin cancer. Musculoskeletal - Denies joint pain, weakness of muscles and joints, back pain, and arthritis. Has joint stiffness. Neuro - Denies headaches. Cardiovascular - Denies chest pain, fatigue, and shortness of breath with exertion. Psych - Denies anxiety and depression. Respiratory - Denies chronic cough and shortness of breath. Has sleep apnea. Gastrointestinal - Denies nausea, vomiting, diarrhea. Has constipation. Hematologic - Denies abnormal bruising and bleeding. Genitourinary - Denies hematuria. Has urinary frequency. Has incontinence. PHYSICAL EXAMINATION General - Alert and Oriented HEENT - PERRL. EOMI. Throat is clear. No suspicious lesions noted. Neck - Supple and nontender. No cervical adenopathy. No suspicious lesions noted. Lungs - Clear to auscultation. Heart - Regular rate and rhythm. Abdomen - Soft and nondistended. Extremities - FROM. No axillary adenopathy. Radial pulses are palpable. No suspicious lesions noted. Back - On the left upper back is a soft tissue mass that is soft to palpation. Measures 8 cm. It is mobile. Mild discomfort with deep palpation. No evidence of infection. No sensory deficits noted. Neuro - CN II-XII grossly intact. Psych - Normal mood and affect. ASSESSMENT 1. 8 cm soft tissue mass left upper back. 2. Family history of skin cancer. PLAN Recommend excision of this soft tissue mass left upper back. Sometimes the mass is adherent to the underlying muscular fascia. Depending on the size of the cavity after excision, a drain may be necessary for several days. Would be maintained on antibiotics until the drain is removed. Will send the soft tissue mass to Pathology for analysis to rule out carcinoma. Surgery will be done on an outpatient basis under local anesthesia and IV sedation. Patient was informed of the risks and complications of the procedure including alternatives to surgery. These were discussed with the patient personally. Patient voices understanding and wishes to proceed. Some of the risks and complications were included in a form from the [place] [employer]. We discussed the current risks associated with COVID-19. While it is understood that there is a community spread of COVID-19, the risk of rosalba COVID-19 while at [facility] ([facility]) is very low; however, the risk cannot be completely mitigated because of the community spread of the disease. We discussed in detail the risk of exposure to and/or potential harm posed by the COVID-19 virus with having a surgery/procedure at this time versus the risk of delaying the surgery/procedure. It is not possible to know either the risk of delaying the surgery or procedure or chance of getting an infection with perfect accuracy, but a joint decision was made to proceed at this time with the scheduled surgery/procedure as indicated on the consent form. Patient was notified that we will need to comply with any screening or testing [facility] wishes to perform or that surgery may be delayed for any positive results. Discussed with the patient that I was tested for COVID-19 on 01/14/20 which was negative and on 01/28/20 which was negative and on 02/11/20 which was negative and on 02/25/20 which was negative and on 03/10/20 which was negative and on 03/31/20 which was negative and on 04/21/20 which was negative and on 05/26/20 which was negative and on 06/16/20 which was negative and on 07/05/20 which was negative. My testing regimen at this time is to be COVID-19 tested every 2 weeks or so. I received the COVID-19 vaccine (Moderna) on 07/13/20 and the second vaccine dose was received on 08/10/20.
[2020-11-08] VITALS (13 sets, daily range): BP systolic 113–138; BP diastolic 43–111; PULSE 43–59; RESP 16; TEMP 36.1–36.5; O2SAT 95–100; BMI 37.6
--- NOTE | 2020-11-08 | MASS_PTH ---
PATIENT: UTE MARTINEZ LOC: [facility] U#:[id number] AGE/SX: 70/F ROOM: RE11/08/[address]: Dr. El Cao MD : 1950 BED: DIS: 11/08/2020 SPEC #: [id number] RECD: 11/08/20 15:46 STATUS: TYESHA REQ #: [id number] JERICHO: 11/08/20 00:[address]: El Cao DEPT: SURGICAL PATHOLOGY RECD BY: Carroll Villavicencio ENTERED: 11/09/20 09:26 SP TYPE: Mass OTHR DR: Dr. Bc Gray MD Tissues: Back, NOS Procedures: Surgery Specimen Level III HEADER OPERATION: Excision soft tissue mass upper back PRE-OP DIAGNOSIS: 8 cm soft tissue mass left upper back TISSUE SUBMITTED: 8 cm soft tissue mass left upper back MICROSCOPIC DIAGNOSIS Soft tissue of left upper back, excision: Mature adipose tissue consistent with lipoma. AM:katie 11/10/2020 MICROSCOPIC DESCRIPTION Slides are reviewed. GROSS DESCRIPTION Received in fixative is one container labeled with the patient's name and designated 8 cm soft tissue mass left upper back. The specimen consists of an irregular piece of adipose tissue measuring 7.5 x 5.5 x 3 cm. The external surface is inked. Sections reveal yellow adipose cut surfaces without areas of hemorrhage, necrosis or cystic degeneration. Blade Boner sections are submitted in four cassettes. / SJ:katie 11/09/20 TC:1 CPT: 25936
[2020-11-08] MEDS: Lactated Ringers 1,000 ML 100 ML IV (11:32)
[2020-11-08 12:15] LABS: Bedside Glucose 91 mg/dL (70-110)
[2020-11-08] MEDS: Lidocaine 1% /Epi 1:100 (20ml) 20 ML Vial (13:13)
[2020-11-08] MEDS: Mupirocin Ointment 22gm Tube 1 APPLIC (13:43)
--- NOTE | 2020-11-08 15:03 | PCM.HP.BLA ---
History and Physical Date of Admission: 11/08/20 History of Present Illness 70 year old woman presents with a soft tissue mass left upper back that has been increasing in size over the last several months.? There is some discomfort when bumped.? She denies trauma.? She denies fever.? She denies infection.? She states the mass is becoming more noticeable through her clothes.? She presents at this time for further evaluation and treatment. Past Medical History? Subcutaneous mass of back Anemia Carpal tunnel syndrome Cataracts, bilateral Diabetes GERD (gastroesophageal reflux disease) High cholesterol High triglycerides Neuropathy UTI (urinary tract infection) Umbilical hernia High blood pressure Abdominal wall ulcer Past Surgical History? delivery cholecystectomy colon surgery partial hysterectomy Allergies cephalexin [From Keflex] OSCAR Inhibitors Uxiyryg-Ekc-Svf Reductase Inhibitor apple cinnamon metoprolol [From Toprol XL] strawberry adhesive tape Medications Amiloride HCl B-Complex with Vitamin C [B-Complex with C] Candesartan/Hydrochlorothiazid [Candesartan-Hctz 32-25 mg Tab] Furosemide [Lasix] Multivitamin [Daily Multiple Vitamin] Omeprazole Sitagliptin Phosphate [Januvia] glyBURIDE [Micronase] Calcium Carbonate/Vitamin D3 [Calcium 500-Vit D3 600 Tablet] Aspirin [Aspir-Low] Insulin Glargine,Hum.rec.anlog [Toujerardo Solostar] Lovastatin [Mevacor] Meclizine HCl Meloxicam [Mobic] [place]-3 Fatty Acids/Fish Oil [Fish Oil 1,000 mg Capsule] Family History? Father - colon cancer Son - Cerebral palsy, Epilepsy Sister - Diabetes, Heart disease, Hypertension Other - Family history of skin cancer Social History Smoking Status:? Never smoker Review of Systems General - Denies fever, fatigue, and weight loss. Eyes - Has cataracts.? Denies glaucoma. ENT - Denies nasal congestion and sore throat. Endocrine - Denies excessive thirst and urination.? Has cold intolerance. Skin - Denies skin cancer.? Has enlarging soft tissue mass left upper back.? Has family history of skin cancer. Musculoskeletal - Denies joint pain, weakness of muscles and joints, back pain, and arthritis.? Has joint stiffness. Neuro - Denies headaches. Cardiovascular - Denies chest pain, fatigue, and shortness of breath with exertion. Psych - Denies anxiety and depression. Respiratory - Denies chronic cough and shortness of breath.? Has sleep apnea. Gastrointestinal - Denies nausea, vomiting, diarrhea.? Has constipation. Hematologic - Denies abnormal bruising and bleeding. Genitourinary - Denies hematuria.? Has urinary frequency. Has incontinence. Physical Examination General - Alert and Oriented HEENT - PERRL. EOMI.? Throat is clear.? No suspicious lesions noted. Neck - Supple and nontender.? No cervical adenopathy.? No suspicious lesions noted. Lungs - Clear to auscultation. Heart - Regular rate and rhythm. Abdomen - Soft and nondistended. Extremities - FROM. No axillary adenopathy.? Radial pulses are palpable.? No suspicious lesions noted. Back - On the left upper back is a soft tissue mass that is soft to palpation.? Measures 8 cm.? It is mobile.? Mild discomfort with deep palpation.? No evidence of infection. ? No sensory deficits noted. Neuro - CN II-XII grossly intact. Psych - Normal mood and affect. Assessment 1.? 8 cm soft tissue mass left upper back. 2.? Family history of skin cancer. Plan Recommend excision of this soft tissue mass left upper back.? Sometimes the mass is adherent to the underlying muscular fascia.? Depending on the size of the cavity after excision, a drain may be necessary for several days.? Would be maintained on antibiotics until the drain is removed. Will send the soft tissue mass to Pathology for analysis to rule out carcinoma. Surgery will be done on an outpatient basis under local anesthesia and IV sedation. Patient was informed of the risks and complications of the procedure including alternatives to surgery.? These were discussed with the patient personally.? Patient voices understanding and wishes to proceed. Some of the risks and complications were included in a form from the [employer] [place] [employer]. We discussed the current risks associated with COVID-19. While it is understood that there is a community spread of COVID-19, the risk of rosalba COVID-19 while at [facility] ([facility]) is very low; however, the risk cannot be completely mitigated because of the community spread of the disease. We discussed in detail the risk of exposure to and/or potential harm posed by the COVID-19 virus with having a surgery/procedure at this time versus the risk of delaying the surgery/procedure. It is not possible to know either the risk of delaying the surgery or procedure or chance of getting an infection with perfect accuracy, but a joint decision was made to proceed at this time with the scheduled surgery/procedure as indicated on the consent form. Patient was notified that we will need to comply with any screening or testing [facility] wishes to perform or that surgery may be delayed for any positive results. Discussed with the patient that I was tested for COVID-19 on 01/14/20 which was negative and on 01/28/20 which was negative and on 02/11/20 which was negative and on 02/25/20 which was negative and on 03/10/20 which was negative and on 03/31/20 which was negative and on 04/21/20 which was negative and on 05/26/20 which was negative and on 06/16/20 which was negative and on 07/05/20 which was negative. ? My testing regimen at this time is to be COVID-19 tested every 2 weeks or so.? I received the COVID-19 vaccine (Moderna) on 07/13/20 and the second vaccine dose was received on 08/10/20.? When I was hospitalized on 09/12/20 I was tested for COVID-19 which was negative.? I was also? tested for COVID-19 on 09/27/20 which was negative and on 10/24/20 which was negative. Procedure Criteria Procedure Type:?Elective COVID Risk Discussion: The surgeon/proceduralist and patient have discussed in detail the risk of exposure to and/or potential harm posed by the COVID-19 virus with having a surgery/procedure at this time versus the risk of delaying the surgery/procedure.? It is not possible to know either the risk of delaying the surgery or procedure or chance of getting an infection with perfect accuracy, but a joint decision was made between the patient and the surgeon/proceduralist to proceed at this time with the scheduled surgery/procedure as indicated on the consent form.
--- NOTE | 2020-11-08 15:07 | OP.PCM_ITS ---
Report of Operation Date of Procedure: 11/08/20 Pre-Operative Diagnosis: 1. 8 cm soft tissue mass left upper back. 2. Family history of skin cancer. Post-Operative Diagnosis: Same. Surgery/Procedure Performed:: Excision 8 cm soft tissue mass left upper back with 8 cm layered closure. Description of Surgical Findings:: 70 year old woman presents with a soft tissue mass left upper back that has been increasing in size over the last several months.? There is some discomfort when bumped.? She denies trauma.? She denies fever.? She denies infection.? She states the mass is becoming more noticeable through her clothes.? Patient was informed of the risks and complications of the procedure including alternatives to surgery. These were discussed with the patient personally. Patient voices understanding and wishes to proceed. Some of the risks and complications were included in a form from the [place] [employer]. I used Shania absorbable hemostat. Reference Number - [id number]. Lot Number - [id number]. Expiration - May 11, 2025. 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 Drains: Lj. Estimated Blood Loss (mL): 10 ml. Description of Procedure: Patient was taken to OR in supine position and was placed under general anesthesia. She was then placed in the prone position. The left upper back was prepped and draped in the usual fashion. SCD's were placed for DVT prophylaxis. Perioperative antibiotics were given intravenously. The soft tissue mass left upper back was infiltrated with xylocaine and epinephrine. After waiting 5 minutes for the anesthetic to take effect, I made an oblique incision over the soft tissue mass and dissected into the subcutaneous tissue. The mass was large and well encapsulated. It was adherent down to the muscular fascia. There was no submuscular component. The mass was excised and sent to Pathology for analysis to rule out carcinoma. Clinically it looked like a lipoma. The wound was irrigated with saline. Hemostasis was obtained with electrocautery. The resultant cavity was large enough that a Lj drain was placed through a separate stab incision inferiorly and secured to the skin with 3-0 Nylon suture. I then sprayed Shania absorbable hemostat into the cavity to minimize seroma formation. The wound was closed in a layered fashion with 3-0 Monocryl figure of eight interrupted sutures for the deep subcutaneous tissue. The deep dermis and subcutaneous tissue was approximated with 3-0 Monocryl interrupted sutures. The skin was approximated with 3-0 Prolene simple interrupted sutures. The length of the layered closure was 8 cm. Antibiotic ointment was applied to the suture line followed by 4x4 gauze and tape compression dressing. Patient tolerated the procedure well and was sent to PACU in satisfactory condition. Patient will be sent home on antibiotics. Patient stated she will initially try to use Tylenol for her postoperative pain. Patient will followup in a week for a wound check and for discussion of the pathology report and for removal of the drain. The sutures will be removed in 10-14 days. Grafts/Implants Used: Shania Complications None. Admit VTE Documentation VTE Present on Admission: No VTE Mechan Device Prophylaxis: SCD's VTE Pharm Prophylaxis ordered?: No Surgery Charges CPT - 61515 ICD-10 - R22.2, Z80.8
--- NOTE | 2020-11-08 15:07 | PCM.DC ---
Discharge Instructions Outpatient Procedure Reason For Visit: LT EXCISION SOFT TISSUE MASS, UPPER BACK Diet Discharge Diet: Carb Control Diet Activity Discharge Activity: May not drive while taking narcotic pain medications., May Not Shower (until the drain is removed.) and - (no heavy lifting. keep head elevated when sitting and when sleeping.) May shower in (days): 7 (after the drain is removed.) May resume sexual activity in: No Restrictions Weight Bearing Status: Weight bearing as tolerated Lifting Restrictions: 20 lbs. Keep extremity elevated above heart level: - (head elevated when sitting and when sleeping.) Dressing / Incision Call your doctor if your incision/area has: Continuous Slow Oozing, Sudden Increased Bleeding, Increased Pain/ Swelling, Increased Redness, Foul Smelling Discharge and Swelling at the incision site Call your doctor if you observe: Fever of 101 or Higher, Coldness, Increased Pain, Shortness of breath, Chest pain, Calf discomfort and Uncontrolled pain Suture Line Care: - Change Dressing in: 2 days (after operative dressing removed in two days, apply antibiotic ointment to suture line daily.) Cleanse incision/area with: Do not get Incision Wet and Keep Dressing Clean & Dry Catheter: - (may get incision wet in the shower after the drain is removed.) Drain: Suction (mickey drain to bulb suction. Empty and record output daily.) Follow Up Care Please Follow Up With: El Cao MD When: one week. Test Results: Test results from this visit will be discussed in further detail at your follow-up appointment, if applicable. Discharge Plan Admission Attending Provider: El Cao Primary Care Provider: Bc Gray Discharge Orders/Prescriptions Prescriptions: New clindamycin HCl [Cleocin HCl] 300 mg capsule 300 mg PO TID Qty: 21 RF: 0 Continued multivitamin 1 EACH tablet 1 ea PO DAILY RF: 0 glyburide 5 MG tablet 2.5 mg PO DAILY@0800 RF: 0 amiloride 5 MG tablet 10 mg PO DAILY RF: 0 furosemide 20 MG tablet 20 mg PO DAILY RF: 0 B-complex with vitamin C 1 EACH tablet 1 ea PO DAILY RF: 0 candesartan-hydrochlorothiazid 1 EACH tablet 1 ea PO DAILY RF: 0 calcium carbonate-vitamin D3 1 EACH tablet 1 ea PO DAILY RF: 0 Fish Oil 1 EACH capsule 1 ea PO BID RF: 0 vit C,Z-[id number]-iqlvc-lutein-zeaxan 1 EACH capsule 2 tablet PO DAILY RF: 0 Held aspirin 81 MG tablet,delayed release (DR/EC) 81 mg PO DAILY RF: 0 Hold Instructions: Resume on 11/10/20. Referrals: Bc Gray MD [Primary Care Provider] -
== END 2020-11-08 17:20 ==
LOC: SDC 10:39 → AC 10:52
PROVIDERS: PCP Family Medicine; Referring Provider Surgery; Visit Provider Surgery
PROC: (CPT 21931; principal; 2020-11-08 12:00)
DX: D17.1 Benign lipomatous neoplasm of skin and subcutaneous tissue of trunk (principal); I10 Essential (primary) hypertension; D64.9 Anemia, unspecified; E11.40 Type 2 diabetes mellitus with diabetic neuropathy, unspecified; E78.00 Pure hypercholesterolemia, unspecified; E78.1 Pure hyperglyceridemia; G47.30 Sleep apnea, unspecified; Z20.822 Contact with and (suspected) exposure to COVID-19; Z79.82 Long term (current) use of aspirin; Z79.1 Long term (current) use of non-steroidal anti-inflammatories (NSAID); Z79.4 Long term (current) use of insulin; Z79.899 Other long term (current) drug therapy; Z80.8 Family history of malignant neoplasm of other organs or systems
CPT/HCPCS: 00300; 21931; 82962; 87426; 88304; 88305; C9803; J7120; J2405